=== PATIENT | male | born 1965 | race Caucasian/White ===

== ENCOUNTER 2025-03-30 17:41 | Emergency (ER) | payer OTHER, SELFPAY ==
[2025-03-30] VITALS (8 sets, daily range): BP systolic 129–189; BP diastolic 81–126; PULSE 70–101; RESP 14–18; TEMP 36.8–37; O2SAT 96–100; BMI 32.7
--- NOTE | 2025-03-30 18:19 | CT_ITS ---
PROCEDURE: CTA HEAD AND NECK W/ CONTRAST 03/30/2025 REASON FOR EXAM: LEFT SIDE WEAKNESS TECHNIQUE: CTA HEAD AND NECK W/ CONTRAST Multiplanar Sagittal and Coronal images were obtained. CONTRAST: 100 mL of Isovue 370 One or more dose reduction techniques were used (e.g., Automated exposure control, adjustment of the mA and/or kV according to patient size, use of iterative reconstruction technique). RADIATION DOSE SUMMARY: DLP: 1725 mGycm COMPARISON: None FINDINGS: CT head : There is no acute infarct, intracranial hemorrhage, or mass effect. There is no hydrocephalus or significant midline shift. No acute, depressed calvarial fractures. No large scalp hematomas. CTA head and neck: The aortic arch demonstrates a type I configuration. The ostia of the great vessels are patent. There is conventional branching. The right CCA is patent. There is no significant stenosis of the right carotid bifurcation by NASCET criteria. The cervical right ICA is patent. The right MCA and right MIO appear patent. There is no large vessel occlusion. The left CCA is patent. There is no significant stenoses at the left carotid bifurcation by NASCET criteria. The cervical left ICA is patent. The left MCA and left MIO appear patent. There is no large vessel occlusion. The right vertebral artery arises from the right subclavian artery. The left vertebral artery arises from the left subclavian artery. Both vertebral arteries are patent. The left vertebral artery is dominant. Both vertebral arteries join to form the patent basilar artery. Both posterior cerebral arteries arise from the tip of the basilar. Both proximal PET CAREGIVER segments are patent. There is no large vessel occlusion. There is no enhancing intracranial mass. Shotty cervical lymph nodes are identified. The thyroid gland is heterogeneous. The lung apices demonstrate no pneumothorax. No destructive osseous abnormalities identified. CT/CTA Head AND Neck W/ Contrast IMPRESSION: No acute, large territorial infarction. No acute intracranial process. No acute large vessel occlusion or high-grade stenosis. Reading Location: [id number]
--- NOTE | 2025-03-30 18:19 | EKG12_ITS ---
Test Reason : GEN ILL Blood Pressure : */* mmHG Vent. Rate : 80 BPM Atrial Rate : 80 BPM P-R Int : 152 ms QRS Dur : 106 ms QT Int : 384 ms P-R-T Axes : 4 -56 5 degrees QTcB Int : 442 ms Normal sinus rhythm Left axis deviation Pulmonary disease pattern Incomplete right bundle branch block Abnormal ECG Confirmed by DARLENE ROYAL, CHRISTIANO ([id number]), electronic news gathering editor FITO SILVERIO ([id number]) on 04/01/2025 6:46:34 AM Referred By: Confirmed By: CHRISTIANO COLON MD
--- NOTE | 2025-03-30 18:22 | EX.ED.DYSGE1 ---
HPI History of Present Illness Chief Complaint: General Illness Informant: patient Narrative Narrative: Patient presents for evaluation. 2 days ago at work 8 AM is under a lot of stress he was taking care of customers he reported lightheaded symptoms with down his knees with syncope episode. Headache afterwards on and off throughout the day has been feeling fatigued. At that time reported he felt weak on the left side he is right-hand dominant. He has been using a cane since. He was confused that evening. Further discussion he states he did seem to have slurred speech that has been improving since then. In addition, he deals with varicose veins he has had DVT in the past his made him come get this evaluated. Denies any pain currently. Noted some lumps. No chest pains no shortness of breath. No stroke history. Does not take blood thinners no aspirin therapy. Hypertension hyperlipidemia. He moved down here from [facility]. He has appointment with his PCP in [place] this coming Monday. Does note numbness in his left foot. Prior similar symptoms: No PFSH PFSH Medical History DVT (deep venous thrombosis) Osteoarthritis HTN (hypertension) Home Medications ?Medication ?Instructions ?Recorded ?Last Taken ?Type bupropion HCl 150 mg 24 hr tablet, 150 mg PO DAILY 06/18/16 06/18/16 History extended release melatonin 3 mg tablet 3 - 6 mg PO QHS 06/18/16 06/17/16 History pantoprazole 40 mg tablet,delayed 40 mg PO DAILY 06/18/16 06/18/16 History release Valsartan [Diovan] 320 mg PO DAILY #30 tabs 06/19/16 Unknown Rx morphine 30 mg tablet,extended 60 mg (2 x 30 mg) PO BID ##28 06/19/16 Unknown Rx release oxycodone 5 mg tablet 5 - 10 mg (1 - 2 x 5 mg) PO Q4H 06/19/16 Unknown Rx PRN PRN Moderate Pain (pain scale 4-5) ##60 rivaroxaban 15 mg tablet (Xarelto) 15 mg PO BID ##42 06/19/16 Unknown Rx rivaroxaban 20 mg tablet (Xarelto) 20 mg PO DAILY ##30 06/19/16 Unknown Rx Allergy/AdvReac Type Severity Reaction Status Date / Time No Known Allergies Allergy Verified 03/30/25 17:43 Social History Smoking Status: Current some day smoker tobacco type: smokeless tobacco ROS ROS ED Constitutional Constitutional ED: Reports other Details: Fatigue ; Denies chills, fever(s) or sweats ENT ENT ED: Denies sore throat Cardiovascular Cardiovascular: Reports other Details: Syncope ; Denies chest pain, leg edema, palpitations or racing heartbeat Respiratory/Chest Respiratory/Chest: Denies cough, dyspnea or dyspnea on exertion Gastrointestinal Gastrointestinal: Denies abdominal pain, diarrhea, nausea or vomiting Genitourinary Genitourinary ED: Denies dysuria, hematuria or urinary frequency Musculoskeletal Musculoskeletal: Denies back pain, extremity pain or neck pain Integumentary Denies rash or wounds Neurologic Neurologic: Reports headache(s), paresthesias and weakness EXAM Physical Exam Const Vital Signs: 03/30/25 17:41 03/30/25 18:41 03/30/25 18:41 Temperature 98.6 F Temperature Source Oral Pulse Rate 101 H 85 Respiratory Rate 18 17 Respiratory Effort Respiratory Pattern Blood Pressure 189/126 H 149/85 H Blood Pressure Mean 147 106 Pulse Ox 100 97 97 Oxygen Delivery Method Room Air Room Air Room Air 03/30/25 18:50 03/30/25 19:19 03/30/25 19:30 Temperature Temperature Source Pulse Rate 82 84 Respiratory Rate 16 16 Respiratory Effort Normal Non-Labored Respiratory Pattern Normal Blood Pressure 164/88 H 164/88 H Blood Pressure Mean 113 113 Pulse Ox 97 96 Oxygen Delivery Method Room Air Room Air 03/30/25 20:00 03/30/25 20:00 03/30/25 20:30 Temperature Temperature Source Pulse Rate 81 100 Respiratory Rate 14 16 Respiratory Effort Respiratory Pattern Blood Pressure 161/82 H 161/82 H 129/81 H Blood Pressure Mean 108 108 97 Pulse Ox 96 96 Oxygen Delivery Method Room Air Room Air 03/30/25 22:00 03/30/25 22:02 Temperature 98.3 F Temperature Source Pulse Rate 70 70 Respiratory Rate 16 16 Respiratory Effort Respiratory Pattern Blood Pressure 134/86 H 134/86 H Blood Pressure Mean 102 102 Pulse Ox 97 97 Oxygen Delivery Method Room Air Positive well nourished and well developed General Appearance ED: well developed and NAD HEENT Reports moist mucous membranes normocephalic and atraumatic Eyes General Eye ED: Yes normal appearance of both eyes Neck full ROM Chest Wall Chest: Negative for tenderness Resp normal respiratory effort and normal air movement Effort and Inspection: symmetric chest movement; Negative for respiratory distress Cardio regular rate, regular rhythm and no murmurs Peripheral Pulses: pulses 2+ throughout GI normal to inspection, nondistended, normoactive bowel sounds and non-tender Palpation: Negative for guarding or rebound tenderness present Extremity normal to inspection General Extremety ED: Negative for edema or tenderness General Extremity: Negative for edema Neuro oriented x3, CN's II-XII intact bilaterally and no sensory deficits noted Neuro Narrative: NIH of 2 for slight drift of left arm, paresthesias to left foot compared to the right foot. There was weakness upper extremity strength and hip flexor strength 4 out of 5 compared the right side. Sensorium / Orientation: awake and alert Skin no rashes or lesions noted and no wounds NIHSS NIHSS Initial: 1a Level of Consciousness: 0 1b LOC Questions (Score 2 if aphasic/stupor): 0 1c LOC Commands (Only score 1st attempt): 0 2 Best Gaze (If aphasic, use reflexive mvmts.): 0 3 Visual: 0 4 Facial Palsy: 0 5 Motor Arm Right (UN = amputation/fusion): 0 5 Motor Arm Left: 1 6 Motor Leg Right: 0 6 Motor Leg Left: 0 7 Limb ataxia (Only + if out of proportion): 0 8 Sensory (Aphasia/stupor=0 or 1, coma=2): 1 9 Best Language: 0 10 Dysarthria (mute, coma=2, intubated=UN): 0 11 Extinction and Inattention (only scored if +): 0 Total Score: 2 MDM MDM MDM Narrative Medical decision making narrative: Interventions / MDM: Differential diagnosis: CVA, left-sided weakness, syncope Diagnosis considered but do not suspect: N/A My EKG interpretation: Sinus rate of 80, no ST changes. T wave inversion leads III flattening in aVF. Some similar findings from 2016 Imaging independently reviewed and interpreted by myself: CT angiogram head and neck: No acute process. External documents reviewed: N/A Test considered but not ordered:N/A ED course: Patient reported syncopal episodes then headache and left-sided weakness. His NIH of 2. Symptoms now over 48 hours. Will check EKG will check CT angiogram head and neck, labs will be checked. Discussed with him concerns for stroke event leading to his symptoms. He is not in the window for any TNK. His speech has improved since onset [address] Results of [address] negative. EKG sinus rhythm. I discussed with patient new symptoms concerning for stroke for admission for further evaluation. However patient reports he would like to go home and see his doctor. His speech is improving. Patient reviewed his meds on the phone he takes 2 baby aspirin's a days on atorvastatin. Therefore, I spoke with his PCP Dr. Royal, discussed patient's wish for outpatient workup. Patient will call his office tomorrow to be seen. This was relayed to the patient who understands and agrees with plan. Work note was provided. Re-evaluation: stable Disposition discussed with patient/family/significant other: Patient Case discussed with consulting clinician: Primary care physician This note was generated with [employer] dictation software. It may contain incorrect words, spelling, and punctuation that were not noted in checking the note before signing. Lab Data Attestation: I reviewed the patient's lab results. Labs: Laboratory Results - last 24 hr 03/30/25 03/30/25 03/30/25 18:29 18:35 20:40 WBC 8.5 RBC 4.69 Hgb 14.7 Hct 41.7 MCV 88.9 MCH 31.3 MCHC 35.3 RDW Std Deviation 42.7 RDW Coeff of Keith 13.1 Plt Count 346 MPV 9.5 Immature Gran % (Auto) 0.600 Neut % (Auto) 57.8 Lymph % (Auto) 23.6 [place] % (Auto) 13.3 H Eos % (Auto) 3.5 Baso % (Auto) 1.2 H Absolute Neuts (auto) 4.9 Absolute Lymphs (auto) 2.01 Nucleated RBC % 0 PT 12.3 INR 0.9 APTT 23.8 L Sodium 137 Potassium 3.5 Chloride 100 Carbon Dioxide 23.4 Anion Gap 14 BUN 11 Creatinine 1.01 Estim Creat Clear Calc 102.22 Est GFR (MDRD) Non-Af 85 BUN/Creatinine Ratio 11.1 Glucose 108 H Calcium 9.4 Troponin T High Sens 8 Troponin T Hi Sens 2 Hr 8 POC Glucose 112 H Radiography Diagnostic Testing: Clinical Impression(s) from Imaging Studies Head/Neck CTA 03/30/25 18:19 IMPRESSION: No acute, large territorial infarction. No acute intracranial process. No acute large vessel occlusion or high-grade stenosis. Reading Location: [facility] Discharge Plan Triage Chief Complaint: General Illness ED Provider: Andrew Farrar Dx/Rx/DC Orders Clinical Impression: Acute CVA (cerebrovascular accident), Left-sided weakness Instructions: Stroke Self Care After Prescriptions: No Action pantoprazole 40 MG tablet 40 mg PO DAILY Patient Comments: GERD bupropion HCl 150 MG tablet extended release 24 hr 150 mg PO DAILY Patient Comments: ANXIETY melatonin 3 MG tablet 3 - 6 mg PO QHS Patient Comments: SLEEP morphine 30 MG tablet 60 mg PO BID Qty: 28 0RF Patient Comments: PAIN Rx Instructions: use for seven days, then discontinue oxycodone 5 MG tablet 5 - 10 mg PO Q4H PRN PRN (Reason: Moderate Pain (pain scale 4-5)) Qty: 60 0RF Patient Comments: BREAKTHROUGH PAIN Valsartan [Diovan] 320 MG tablet 320 mg PO DAILY Qty: 30 1RF Patient Comments: BLOOD PRESSURE rivaroxaban [Xarelto] 20 MG tablet 20 mg PO DAILY Qty: 30 0RF Patient Comments: BLOOD THINNER Rx Instructions: start on 07/10/16 rivaroxaban [Xarelto] 15 MG tablet 15 mg PO BID Qty: 42 0RF Patient Comments: BLOOD THINNER Rx Instructions: start on 06/20/16 Stand Alone Forms: ED Work / School Excuse Primary Care Provider: Rupesh Royal Referrals: Rupesh Royal DO [Primary Care Provider] - 1 Day Kwaku Lyons MD [Non-Staff] - Activity Restrictions/Additional Instructions: Is concerned he had a stroke 2 days ago affecting her left side. Your CT angiogram and CT brain were negative. EKG sinus rhythm. Your labs are stable. Continue your aspirin daily continue your atorvastatin. I discussed with Dr. Royal in the ED as you wish to go home. Call the office tomorrow to be seen later in the afternoon. Print Language: [place] Disposition Disposition: Home, Self Care Discharge Date/Time: 03/30/25 22:28
[2025-03-30 18:46] LABS: Bedside Glucose 112 mg/dL (74-106)
[2025-03-30 18:51] LABS: Absolute Lymphocyte Count 2.01 X10^3/uL (0.83-4.51); Absolute Neutrophil Count 4.9 X10^3/uL (2.0-7.7); Basophil% 1.2 % (0-1); Eosinophils% 3.5 % (0-5); Hematocrit 41.7 % (40-54); Hemoglobin 14.7 g/dL (13.0-16.5); Lymphocyte # 2.01 X10^3/ul (0.83-4.51); Lymphocyte % 23.6 % (19-41); Mean Corp Hgb Conc 35.3 g/dL (32-36); Mean Corpuscular Hgb 31.3 pg (27.0-32.0); Mean Corpuscular Volume 88.9 fL (80-94); Mean Platelet Vol. 9.5 fl (6.2-12.0); Monocyte# 1.13 X10^3/uL; Monocyte% 13.3 % (0-10); NRBC Flagged by Analyzer 0 % (0-5); Neutrophil # 4.91 X10^3/uL (2.7-7.7); Neutrophil % 57.8 % (47-70); Platelet Count 346 K/mm3 (150-450); RBC Distribution Width CV 13.1 % (11.6-14.6); RBC Distribution Width SD 42.7 fl (35.1-43.9); Red Blood Count 4.69 M/mm3 (4.6-6.2); White Blood Count 8.5 K/mm3 (4.4-11.0)
[2025-03-30 19:08] LABS: International Normalized Ratio 0.9; Partial Thromboplast Time 23.8 Seconds (24.1-36.2); Prothrombin Time (Protime)PT. 12.3 SECONDS (11.7-14.9)
[2025-03-30 19:40] LABS: Anion Gap 14 (5-15); BUN 11 mg/dL (4-19); BUN/Creat Ratio 11.1 RATIO (10-20); Calcium,Total 9.4 mg/dL (7.6-11.0); Carbon Dioxide 23.4 mmol/L (21.0-32.0); Chloride 100 mmol/L (98-108); Creatinine, Serum 1.01 mg/dL (0.70-1.20); EST Glomerular Filtration Rate 85 (>60); Estimated Creatinine Clearance 102.22 ml/min (50-250); Glucose 108 mg/dL (70-99); Potassium 3.5 mmol/L (3.3-5.1); Sodium Level 137 mmol/L (133-145); Troponin T High Sensitivity 8 ng/L (<=22)
--- OUTSIDE RECORDS SUMMARY | 2025-03-30 19:49 | XMS RPT_ITS | CCD ---
Author Organization [employer] [facility] Care Team Providers Care Skin Fitter Name Role Phone Rupesh Royal Primary Care Provider Kwaku Lyons Referring Unavailable Kwaku Lyons Primary Care Unavailable Mg Olivia Attending Unavailable Problems Problem Classification Problem Date Documented Da te Episodic/Chronic Disorders of teeth and jaw (1 source) Periapical abscess without sinus; Translations: [Periapical abscess without sinus] Onset: 10-07-2024 Episodic Other upper respiratory infections (1 source) Acute sinusitis, unspecified; Translations: [Acute sinusitis, unspecified] Onset: 10-07-2024 Episodic Results Test Name Value Interpretation Reference Range Facility Urgent Care Visit Reporton 1 11-06-2023 Urgent Care Visit Report [facility] [address], [address] [place] [address] OFFICE VISIT Date of Service: 09/06/24 MR#: [id number] Acct: [id number] Name: RONALD AMEZQUITA Rep #: [id number] : 1965 Provider: SHASHA Isbell Age/Sex: 58/M Location: [facility] Status: Signed Intake Vital Signs 06/19/16 11:08 09/06/24 12:19 Height 6 ft 1 in 6 ft 1 in Weight: 252 lb 6 oz BMI 33.3 BP 162/68 H Blood Pressure Location Lt brachial Position Sitting Respiration 6 L Pulse 84 Pulse Source NIBP Temp 98.2 F Temp Source Oral Pulse Oximetry (%) 98 Oxygen Delivery Method room air Intake Visit Reasons: INFECTED TOOTH Chief Complaint: left lower tooth pain Public Relations Consultant Required: No Is patient in pain?: Yes Allergies No Known Allergies Allergy (Verified 09/06/24 12:20) Have you fallen in the past year?: No Nurse's Note: left lower tooth pain/swelling x 3 months worsening. known issue in area, getting teeth pulled in 2024. concern for infection [facility] Medical History (Updated 09/06/24 @ 13:04 by Mg PULLIAM, SHASHA) DVT (deep venous thrombosis) Osteoarthritis HTN (hypertension) Social History Smoking Status: Current some day smoker HPI HPI Chief Complaint: left lower tooth pain Details: RONALD AMEZQUITA, is a 58 M who presents to the office today for complaint of left lower tooth pain. Patient states knowing having multiple teeth that need to be pulled. Patient states he does have a dentist appointment coming up in 3 days to have it addressed. Patient denies fever, chills, sweats. No nausea, vomiting or diarrhea. No other associated symptoms or alleviating/aggravating factors. ROS Const Constitutional: No other (6 system ROS completed with pertinent findings in the HPI otherwise normal.) Exam Const General: cooperative and healthy appearing [facility] Head: normocephalic and atraumatic Ears: hearing grossly normal bilaterally Nose: external nose normal Face and sinus: normal facial exam and face symmetric Mouth: oral mucosae normal Teeth and gingiva: caries, gingiva abnormal edematous, tender and receding and poor dentition Throat: posterior oropharynx normal Other: Multiple decayed molars left lower jaw with 1 having pulp exposed. Resp Effort Inspection: normal respiratory effort Cardio Rate: regular rate Skin General: no rashes or lesions noted Neuro General: patient alert Psych Appearance: grossly normal Mental Status: mental status grossly normal Coding Level of Care Code Off vis,new,level 3 Diagnoses Dental infection K04.7 Assessment and Plan Assessment and Plan (1) Dental infection: Status: Acute Medications: New amoxicillin-pot clavulanate 875-125 mg 1 TAB PO Q12H 20 tabs 0RF 10 days J01.90 - Acute sinusitis, unspecified Plan Augmentin as prescribed today. Encouraged to get plenty of rest, drink lots of clear liquids, and use Tylenol or Ibuprofen (unless contraindicated) for fever and comfort. Patient also educated on other symptomatic management techniques. To be seen in 7-10 days if no improvement; sooner if worsening of symptoms. Patient advised of potential red flags and when appropriate to report to the ED. Patient verbalized understanding and agreement with all the above. Clinical Quality Measures Falls Risk Screening/Assistive Devices Have you fallen in the past year?: No 09/06/24 1304 Date Mg Bowen Signature: Date (if applicable) CC: Normal [facility] 36on 04-14-2024 36 S: Patient spok e with [facility] nurse via Nurse Advice Line regarding abscess tooth B: Onset of symptoms/concern several weeks A: States patient has swelling around molar and having pain. States they know tooth is abscessed and are asking for antibiotic to treat. R: Patient understands care advice that antibiotic cannot be ordered by nurse. Advised patient should be evaluated by a dentist. states they wanted to treat with antibiotic before seeing dentist. Advised patient could go to [facility] for evaluation and treatment. No further needs at this time. Patient instructed to call back with new or worsening symptoms. Reason for Disposition Tooth is painful or swelling around a tooth [1] Face is swollen AND [2] no fever Protocols used: Mouth Hyxw-PNIAV-AN, Bkswmzxno[facility] SURGICAL PATHOLOGYon 023 CASE REPORT Normal [facility] Comment on above: Order Comment: Speci men Type: TISSUE SPECIMEN Ordering Facility: [facility] Address: [place] [address] Result Comment: Surg [facility] Pathology Report Case: [id number] Authorizing Provider: Margarita Oliver MD Collected: 12/15/2022 12:31 PM Ordering Location: [facility] Main Received: 12/15/2022 10:36 PM Pathologist: Sherine Ruiz MD Specimen: SKIN SHAVE BIOPSY, L Ala Performed By: #### S #### [facility] CLIA [id number] [address] [place] [address] [place] DERM SOURCE 1 Sebaceous gland hyperplasia Normal [facility] Comment on above: Order Comment: Speci men Type: TISSUE SPECIMEN Ordering Facility: [facility] Address: [place] [address] Performed By: #### S #### [facility] CLIA [id number] [address] [place] [address] OF [place] FINAL DIAGNOSIS Normal [facility] Comment on above: Order Comment: Speci men Type: TISSUE SPECIMEN Ordering Facility: [facility] Address: [place] [address] Result Comment: Venu bentley, left zen, shave biopsy: -Sebaceous hyperplasia with fibrous papule. -Demodex folliculitis Performed By: #### S #### [facility] CLIA [id number] [address] [place] [address] [facility] Normal [facility] Comment on above: Order Comment: Speci men Type: TISSUE SPECIMEN Ordering Facility: [facility] Address: [place] [address] Result Comment: Diag nostic interpretation performed at [place] [address] CLIA# [id number] Housekeeping Room Attendant: Christopher Burgess M.D. Performed By: #### S #### [facility] CLIA [id number] [address] [place] [address] OF [place] GROSS DESCRIPTION Normal [facility] Comment on above: Order Comment: Speci faviola Type: TISSUE SPECIMEN Ordering Facility: [facility] Address: [place] [address] Result Comment: Kaila. Pam BENTLEY SHAVE BIOPSY Received in formalin is a 0.7 x 0.6 x 0.2 cm shave of skin. On the skin surface there is a 0.7 cm christiansen slightly elevated area. The specimen is bisected. Totally submitted in one cassette. Gross examination performed at [place] [id number] FF 12/16/2022 1:52 AM Performed By: #### S #### [facility] CLIA [id number] [address] [place], [place] [id number] [place] CBC (INCLUDES DIFF/PLT)on Basophils (Bld) [#/Vol] 0.078 10*3/uL Normal 0-200 [facility] Comment on above: Performed By: #### 5 363, 496, 66147, 91538, 6399 #### [facility] of [address], [address] [place] [address] Manager Garden: Jt Jorgensen MD Basophils/100 WBC (Bld) 0.9 % Normal [facility] Comment on above: Performed By: #### 5 363, 496, 54998, 73977, 6399 #### [facility] of [place] [address] Manager Garden: Jt Jorgensen MD Eosinophils (Bld) [#/Vol] 0.174 10*3/uL Normal 15-500 [facility] Comment on above: Performed By: #### 5 363, 496, 06134, 79395, 6399 #### [facility] of [place] [address] Manager Garden: Jt Jorgensen MD Eosinophils/100 WBC (Bld) 2.0 % Normal [facility] Comment on above: Performed By: #### 5 363, 496, 15230, 16517, 6399 #### [facility] of [place] [address] Manager Garden: Jt Jorgensen MD Erythrocyte distribution width (RBC) [Ratio] 13.0 % Normal 11.0-15.0 [facility] Comment on above: Performed By: #### 5 363, 496, 93387, 20988, 6399 #### [facility] of [place] [address] Manager Garden: Jt Jorgensen MD Hematocrit (Bld) [Volume fraction] 40.8 % Normal 38.5-50.0 [facility] Comment on above: Performed By: #### 5 363, 496, 18751, 93900, 6399 #### [facility] of [place] [address] Manager Garden: Jt Jorgensen MD Hemoglobin (Bld) [Mass/Vol] 13.8 g/dL Normal 13.2-17.1 [facility] Comment on above: Performed By: #### 5 363, 496, 33319, 74235, 6399 #### [facility] of [address], [address] [place] [address] Manager Garden: Jt Jorgensen MD Lymphocytes (Bld) [#/Vol] 1.844 10*3/uL Normal 850-3900 [facility] Comment on above: Performed By: #### 5 363, 496, 08731, 44467, 6399 #### [facility] of [address], [address] [place] [address] Manager Garden: Jt Jorgensen MD Lymphocytes/100 WBC (Bld) 21.2 % Normal [facility] Comment on above: Performed By: #### 5 363, 496, 19185, 11246, 6399 #### [facility] of [place] [address] Manager Garden: Jt Jorgensen MD MCH (RBC) [Entitic mass] 31.3 pg Normal 27.0-33.0 [facility] Comment on above: Performed By: #### 5 363, 496, 01414, 95712, 6399 #### [facility] of [place] [address] Manager Garden: Jt Jorgensen MD MCHC (RBC) [Mass/Vol] 33.8 g/dL Normal 32.0-36.0 [facility] Comment on above: Performed By: #### 5 363, 496, 35206, 12912, 6399 #### [facility] of [place] [address] Manager Garden: Jt Jorgensen MD MCV (RBC) [Entitic vol] 92.5 fL Normal 80.0-100.0 [facility] Comment on above: Performed By: #### 5 363, 496, 97529, 12003, 6399 #### [facility] of [place] [address] Manager Garden: tJ Jorgensen MD Monocytes (Bld) [#/Vol] 0.887 10*3/uL Normal 200-950 [facility] Comment on above: Performed By: #### 5 363, 496, 91378, 11531, 6399 #### [facility] of [place] [address] Manager Garden: Jt Jorgensen MD Monocytes/100 WBC (Bld) 10.2 % Normal [facility] Comment on above: Performed By: #### 5 363, 496, 68786, 61408, 6399 #### [facility] of [place] [address] Manager Garden: Jt Jorgensen MD Neutrophils (Bld) [#/Vol] 5.716 10*3/uL Normal 2507-4787 [facility] Comment on above: Performed By: #### 5 363, 496, 66546, 74027, 6399 #### [facility] [place] [address] Manager Garden: Jt Jorgensen MD Neutrophils/100 WBC (Bld) 65.7 % Normal [facility] Comment on above: Performed By: #### 5 363, 496, 45178, 50980, 6399 #### [facility] of [place] [address] Manager Garden: Jt Jorgensen MD Platelet mean volume (Bld) [Entitic vol] 10.2 fL Normal 7.5-12.5 [facility] Comment on above: Performed By: #### 5 363, 496, 23322, 38306, 6399 #### [facility] of [address] [place] [address] Manager Garden: Jt Jorgensen MD Platelets (Bld) [#/Vol] 320 10*3/uL Normal 140-400 [facility] Comment on above: Performed By: #### 5 363, 496, 93354, 33501, 6399 #### [facility] of [address], [address] [place] [address] Manager Garden: Jt Jorgensen MD RBC (Bld) [#/Vol] 4.41 10*6/uL Normal 4.20-5.80 [facility] Comment on above: Performed By: #### 5 363, 496, 48279, 77747, 6399 #### [facility] of [place] [address] Manager Garden: Jt Jorgensen MD WBC (Bld) [#/Vol] 8.7 10*3/uL Normal 3.8-10.8 [facility] Comment on above: Performed By: #### 5 363, 496, 09880, 60430, 6399 #### [facility] of [place] [address] Manager Garden: Jt Jorgensen MD [facility] [place] 11-04-2022 Albumin [Mass/Vol] 4.5 g/dL Normal 3.6-5.1 [facility] Comment on above: Performed By: #### 5 363, 496, 94018, 02442, 6399 #### [facility] of [place] [address] Manager Garden: Jt Jorgensen MD Albumin/Globulin [Mass ratio] 1.8 {ratio} Normal 1.0-2.5 [facility] Comment on above: Performed By: #### 5 363, 496, 77346, 71867, 6399 #### [facility] of [place] [address] Manager Garden: Jt Jorgensen MD ALP [Catalytic activity/Vol] 85 U/L Normal 35-144 [facility] Comment on above: Performed By: #### 5 363, 496, 34374, 95837, 6399 #### [facility] of [address], [address] [place] [address] Manager Garden: Jt Jorgensen MD ALT [Catalytic activity/Vol] 56 U/L High 9-46 [facility] Comment on above: Performed By: #### 5 363, 496, 10545, 08036, 6399 #### [facility] of [address], [address] [place] [address] Manager Garden: Jt Jorgensen MD AST [Catalytic activity/Vol] 63 U/L High 10-35 [facility] Comment on above: Performed By: #### 5 363, 496, 31127, 82673, 6399 #### [facility] of [address], [address] [place] [address] Manager Garden: Jt Jorgensen MD Bilirubin [Mass/Vol] 0.8 mg/dL Normal 0.2-1.2 [facility] Comment on above: Performed By: #### 5 363, 496, 43302, 14612, 6399 #### [facility] of [address], [address] [place] [address] Manager Garden: Jt Jorgensen MD BUN/CREATININE RATIO NOT APPLICABLE Normal 6-22 [facility] Comment on above: Performed By: #### 5 363, 496, 28032, 12849, 6399 #### [facility] of [place] [address] Manager Garden: Jt Jorgensen MD Calcium [Mass/Vol] 9.5 mg/dL Normal 8.6-10.3 [facility] Comment on above: Performed By: #### 5 363, 496, 70582, 72150, 6399 #### [facility] of [place] [address] Manager Garden: Jt Jorgensen MD Chloride [Moles/Vol] 101 mmol/L Normal 98-110 [facility] Comment on above: Performed By: #### 5 363, 496, 67792, 10057, 6399 #### [facility] of [facility] [address], [address] [address] Manager Garden: Jt Jorgensen MD CO2 [Moles/Vol] 26 mmol/L Normal 20-32 [facility] Comment on above: Performed By: #### 5 363, 496, 81224, 96422, 6399 #### [facility] [place] [address] Manager Garden: Jt Jorgensen MD Creatinine [Mass/Vol] 1.06 mg/dL Normal 0.70-1.30 [facility] Comment on above: Performed By: #### 5 363, 496, 55157, 46548, 6399 #### [facility] [place] [address] Manager Garden: Jt Jorgensen MD GFR/1.73 sq M.predicted among non-blacks MDRD (S/P/Bld) [Vol rate/Area] 82 mL/min/{1.73_m2} Normal > OR = 60 [facility] Comment on above: Result Comment: The eGFR is based on the CKD-EPI 2020 equation. To calculate the new eGFR from a previous Creatinine or Cystatin C result, go to https://www.kidney.org/professionals/ kdoqi/gfr%5Fcalculator Performed By: #### 5 363, 496, 18099, 01859, 6399 #### [facility] [place] [address] Manager Garden: Jt Jorgensen MD Globulin (S) [Mass/Vol] 2.5 g/dL Normal 1.9-3.7 [facility] Comment on above: Performed By: #### 5 363, 496, 18242, 98501, 6399 #### [facility] [place] [address] Manager Garden: Jt Jorgensen MD Glucose [Mass/Vol] 132 mg/dL High 65-99 [facility] Comment on above: Result Comment: Fasting reference interval For someone without known diabetes, a glucose value >125 mg/dL indicates that they may have diabetes and this should be confirmed with a follow-up test. Performed By: #### 5 363, 496, 99319, 94997, 6399 #### [facility] [place] [address] Manager Garden: Jt Jorgensen MD Potassium [Moles/Vol] 4.1 mmol/L Normal 3.5-5.3 [facility] Comment on above: Performed By: #### 5 363, 496, 20739, 46428, 6399 #### [facility] [place] [address] Manager Garden: Jt Jorgensen MD Protein [Mass/Vol] 7.0 g/dL Normal 6.1-8.1 [facility] Comment on above: Performed By: #### 5 363, 496, 69896, 74022, 6399 #### [facility] [place] [address] Manager Garden: Jt Jorgensen MD Sodium [Moles/Vol] 141 mmol/L Normal 135-146 [facility] Comment on above: Performed By: #### 5 363, 496, 18456, 80788, 6399 #### [facility] [place] [address] Manager Garden: Jt Jorgensen MD Urea nitrogen [Mass/Vol] 15 mg/dL Normal 7-25 [facility] Comment on above: Performed By: #### 5 363, 496, 83386, 74469, 6399 #### [facility] [place] [address] Manager Garden: Jt Jorgensen MD HEMOGLOBIN A1con 11-04-2022 HEMOGLOBIN A1c 6.1 % of total Hgb High <5.7 [facility] Comment on above: Result Comment: For someone without known diabetes, a hemoglobin A1c value between 5.7% and 6.4% is consistent with prediabetes and should be confirmed with a follow-up test. For someone with known diabetes, a value <7% indicates that their diabetes is well controlled. A1c targets should be individualized based on duration of diabetes, age, comorbid conditions, and other considerations. This assay result is consistent with an increased risk of diabetes. Currently, no consensus exists regarding use of hemoglobin A1c for diagnosis of diabetes for children. Performed By: #### 5 363, 496, 56315, 79225, 6399 #### [facility] [address], [address] [place] [address] Manager Garden: Jt Jorgensen MD LIPID PANEL WITH REFLEX TO D HARJINDERCT LDLon 11-04-2022 Cholesterol [Mass/Vol] 194 mg/dL Normal <200 [facility] Comment on above: Order Comment: FASTI NG:YES FASTING: YES Performed By: #### 5 363, 496, 56427, 33982, 6399 #### [facility] [address], [address] [place] [address] Manager Garden: Jt Jorgensen MD Cholesterol in HDL [Mass/Vol] 61 mg/dL Normal > OR = 40 [facility] Comment on above: Order Comment: FASTI NG:YES FASTING: YES Performed By: #### 5 363, 496, 07710, 93819, 6399 #### [facility] [address], [address] [place] [address] Manager Garden: Jt Jorgensen MD Cholesterol in LDL [Mass/Vol] 93 mg/dL Normal [facility] Comment on above: Order Comment: FASTI NG:YES FASTING: YES Result Comment: Refe rence range: <100 Desirable range <100 mg/dL for primary prevention; <70 mg/dL for patients with CHD or diabetic patients with > or = 2 CHD risk factors. LDL-C is now calculated using the Arie-[place] calculation, which is a validated novel method providing better accuracy than the Friedewald equation in the estimation of LDL-C. Arie SS et al. CIRO. 2013;310(19): 6099-9994 (http://education.[employer].2degreesmobile/faq/GLZ496) Performed By: #### 5 363, 496, 86427, 85563, 6399 #### [facility] [address], [address] [place] [address] Manager Garden: Jt Jorgensen MD Cholesterol.total/C holesterol in HDL [Mass ratio] 3.2 {ratio} Normal <5.0 [facility] Comment on above: Order Comment: FASTI NG:YES FASTING: YES Performed By: #### 5 363, 496, 57819, 05845, 6399 #### [facility] [address], [address] [place] [address] Manager Garden: Jt Jorgensen MD NON HDL CHOLESTEROL 133 mg/dL (calc) High <130 [facility] Comment on above: Order Comment: FASTI NG:YES FASTING: YES Result Comment: For patients with diabetes plus 1 major ASCVD risk factor, treating to a non-HDL-C goal of <100 mg/dL (LDL-C of <70 mg/dL) is considered a therapeutic option. Performed By: #### 5 363, 496, 55879, 92694, 6399 #### [facility] [address], [address] [place] [address] Manager Garden: Jt Jorgensen MD Triglyceride [Mass/Vol] 278 mg/dL High <150 [facility] Comment on above: Order Comment: FASTI NG:YES FASTING: YES Result Comment: If a non-fasting specimen was collected, consider repeat triglyceride testing on a fasting specimen if clinically indicated. Harjinder et al. J. of Clin. Lipidol. 2015;9:129-169. Performed By: #### 5 363, 496, 56273, 61286, 6399 #### [facility] [address], [address] [place] [address] Manager Garden: Jt Jorgensen MD PSA, TOTALon 11-04-2022 PSA, TOTAL 0.48 ng/mL Normal < OR = 4.00 [facility] Comment on above: Result Comment: The total PSA value from this assay system is standardized against the WHO standard. The test result will be approximately 20% lower when compared to the equimolar-standardized total PSA ([place]). Comparison of serial PSA results should be interpreted with this fact in mind. This test was performed using the Siemens chemiluminescent method. Values obtained from different assay methods cannot be used interchangeably. PSA levels, regardless of value, should not be interpreted as absolute evidence of the presence or absence of disease. Performed By: #### 5 363, 496, 95931, 46979, 6399 #### [facility] [address], [address] [place] [address] Manager Garden: Jt Jorgensen MD AUTO DIFFon 03-22-2022 Baso Count 0.10 x1000 Normal 0.00-0.20 [facility] Comment on above: Performed By: #### 1 220641, [id number], 3822179, 3108017, 275276, 913259, 373756 #### [facility] [address] [place], [place] [address] Manager Garden: Arie Gupta MD Basos % 1.0 % Normal [facility] Comment on above: Performed By: #### 1 046354, CD:[id number], 1229710, 4540641, 044034, 720749, 104883 #### [facility] [address] [place], [place] [address] Manager Garden: Arie Gupta MD Eos Count 0.15 x1000 Normal 0.00-0.50 [facility] Comment on above: Performed By: #### 1 107157, CD:[id number], 6747185, 1615301, 466385, 504260, 747762 #### [facility] [address] [place], [place] [address] Manager Garden: Arie Gupta MD Eosinophils/100 WBC (Bld) 1.5 % Normal [facility] Comment on above: Performed By: #### 1 717674, CD:[id number], 2951269, 6875643, 381553, 324162, 977458 #### [facility] [address] [place] [address] Manager Garden: Arie Gupta MD Lymph Count 1.70 x1000 Normal 1.20-4.80 [facility] Comment on above: Performed By: #### 1 660990, CD:[id number], 4956554, 2505162, 499133, 047284, 266102 #### [facility] [address] [place] [address] Manager Garden: Arie Gupta MD Lymphocytes/100 WBC (Bld) 16.6 % Normal [facility] Comment on above: Performed By: #### 1 711213, CD:[id number], 7833953, 6861993, 636716, 773285, 103226 #### [facility] [address] [place] [address] Manager Garden: Arie Gupta MD Mcclain Count 1.08 x1000 High 0.10-1.00 [facility] Comment on above: Performed By: #### 1 102471, CD:[id number], 9466267, 0432861, 345121, 115745, 891750 #### [facility] [address] [place] [address] Manager Garden: Arie Gupta MD Monocytes/100 WBC (Bld) 10.6 % Normal [facility] Comment on above: Performed By: #### 1 863432, CD:[id number], 8750942, 1316885, 281243, 250313, 730640 #### [facility] [address] [place] [address] Manager Garden: Arie Gupta MD Neutrophil Count (ANC) 7.20 x1000 Normal 1.40-8.80 [facility] Comment on above: Performed By: #### 1 312301, CD:[id number], 4377654, 0620633, 481214, 946351, 040874 #### [facility] [address] [place] [address] Manager Garden: Arie Gupta MD Neutrophils/100 WBC (Bld) 70.4 % Normal [facility] Comment on above: Performed By: #### 1 402744, CD:[id number], 8486560, 0857421, 787154, 865675, 977791 #### [facility] [address] [place] [address] Manager Garden: Arie Gupta MD COMPMETAon 03-22-2022 Albumin/Globulin [Mass ratio] 1.0 {ratio} Normal [facility] Comment on above: Performed By: #### 1 [id number], CD:[id number], 5172516, 1103424, 309488, 607271, 459066 #### [facility] [address] [place] [address] Manager Garden: Arie Gupta MD GFR AA >60 Normal [facility] Comment on above: Result Comment: Afri can Tunisian GFR Calc Medical judgement is necessary to interpret GFR. The calculated GFR may not accurately reflect renal status in patients >70 years, women, acutely ill hospitalized patients and patients with acute renal failure or known renal disease. The MDRD GFR formula is valid only for adults greater than 18 years of age. Note: Creatinine clearance (not GFR) should be used for drug dosing. Performed By: #### 1 954180, CD:[id number], 9557746, 5756577, 917542, 803792, 182597 #### [facility] [address] [place] [address] Manager Garden: Arie Gupta MD Glomerular Filtration Rate >60 Normal [facility] Comment on above: Result Comment: Non GFR Calc Medical judgement is necessary to interpret GFR. The calculated GFR may not accurately reflect renal status in patients >70 years, women, acutely ill hospitalized patients and patients with acute renal failure or known renal disease. The MDRD GFR formula is valid only for adults greater than 18 years of age. Note: Creatinine clearance (not GFR) should be used for drug dosing. Performed By: #### 1 260538, CD:[id number], 3583808, 7526994, 726071, 251424, 329612 #### [facility] [address] [place] [address] Manager Garden: Arie Gupta MD Osmolality [Osmolality] 274 mosm/kg Low 275-295 [facility] Comment on above: Performed By: #### 1 977376, CD:[id number], 9565919, 9359932, 327456, 731058, 857985 #### [facility] [address] [place] [address] Manager Garden: Arie Gupta MD Urea nitrogen/Creatinine [Mass ratio] 8.3 mg/mg Normal [facility] Comment on above: Performed By: #### 1 812348, CD:[id number], 2627933, 9412994, 052067, 130911, 727168 #### [facility] [address] [place] [address] Manager Garden: Arie Gupta MD Albumin [Mass/Vol] 3.7 g/dL Normal 3.4-5.0 [facility] Comment on above: Performed By: #### 1 207780, CD:[id number], 0220419, 4064009, 586276, 944140, 621004 #### [facility] [address] [place] [address] Manager Garden: Arie Gupta MD Alk Phos 102 unit/L Normal 45-117 [facility] Comment on above: Performed By: #### 1 250521, CD:[id number], 6393727, 8038538, 205109, 022323, 342268 #### [facility] [address] [place] [address] Manager Garden: Arie Gupta MD Bilirubin [Mass/Vol] 1.11 mg/dL High 0.20-1.00 [facility] Comment on above: Result Comment: Use of this assay is not recommended for patients undergoing treatment with eltrombopag due to the potential for falsely elevated results. Performed By: #### 1 744569, CD:[id number], 4573404, 4530338, 341317, 592890, 130133 #### [facility] [address] [place] [address] Manager Garden: Arie Gupta MD Calcium [Mass/Vol] 9.6 mg/dL Normal 8.5-10.5 [facility] Comment on above: Performed By: #### 1 725506, CD:[id number], 4507356, 1046799, 022886, 787890, 422893 #### [facility] [address] [place] [address] Manager Garden: Arie Gupta MD Chloride [Moles/Vol] 99 mmol/L Low 100-109 [facility] Comment on above: Performed By: #### 1 480078, CD:238463142, 6699838, 2564343, 261221, 049918, 050510 #### [facility] [address] [place] [address] Manager Garden: Arie Gupta MD CO2 [Moles/Vol] 29.1 mmol/L Normal 21.0-32.0 [facility] Comment on above: Performed By: #### 1 979719, CD:[id number], 4539365, 1064125, 552653, 092193, 083680 #### [facility] [address] [place] [address] Manager Garden: Arie Gupta MD Creatinine [Mass/Vol] 1.1 mg/dL Normal 0.7-1.3 [facility] Comment on above: Performed By: #### 1 192922, CD:[id number], 7450949, 7926295, 014623, 340698, 934680 #### [facility] [address] [place] [address] Manager Garden: Arie Gupta MD Globulin (S) [Mass/Vol] 3.6 g/dL Normal [facility] Comment on above: Performed By: #### 1 344986, CD:993512025, 3088203, 6789094, 392188, 951261, 039248 #### [facility] [address] [place] [address] Manager Garden: Arie Gupta MD Glucose [Mass/Vol] 123 mg/dL High 72-100 [facility] Comment on above: Result Comment: Luzmaria puncture should occur prior to sulfasalazine administration due to the potential for falsely depressed results. Venipuncture should occur prior to sulfapyridine administration due to the potential falsely elevated results. Baseline assay values before administration of sulfasalazine and sulfapyridine therapy would not be affected. Performed By: #### 1 961259, CD:[id number], 4240657, 5756183, 697672, 615549, 260187 #### [facility] [address] [place], [place] [id number] Manager Garden: Arie Gupta MD GOT 54 unit/L High 15-37 [facility] Comment on above: Result Comment: Luzmaria puncture should occur prior to sulfasalazine and/or sulfapyridine administration due to the potential for falsely depressed results. Baseline assay values before administration of sulfasalazine and sulfapyridine therapy would not be affected. Performed By: #### 1 664262, CD:937498209, 5553378, 4396594, 786376, 081252, 692123 #### [facility] [address] [place] [address] Manager Garden: Arie Gupta MD GPT 72 unit/L High 16-61 [facility] Comment on above: Result Comment: Luzmaria puncture should occur prior to sulfasalazine and/or sulfapyridine administration due to the potential for falsely depressed results. Baseline assay values before administration of sulfasalazine and sulfapyridine therapy would not be affected. Performed By: #### 1 886564, CD:134530350, 5560116, 9458431, 042347, 085180, 119790 #### [facility] [address] [place] [address] Manager Garden: Arie Gupta MD Potassium [Moles/Vol] 3.6 mmol/L Normal 3.5-5.1 [facility] Comment on above: Performed By: #### 1 429381, CD:523854873, 1764285, 0746693, 019974, 806344, 115167 #### [facility] [address] [place] [address] Manager Garden: Arie Gupta MD Protein [Mass/Vol] 7.3 g/dL Normal 6.0-8.5 [facility] Comment on above: Performed By: #### 1 644100, CD:553305390, 7507464, 9543885, 498701, 135938, 697449 #### [facility] [address] [place] [address] Manager Garden: Arie Gupta MD Sodium [Moles/Vol] 137 mmol/L Normal 135-145 [facility] Comment on above: Performed By: #### 1 103845, CD:875371271, 7959367, 6783341, 252490, 885246, 240703 #### [facility] [address] [place] [address] Manager Garden: Arie Gupta MD Urea nitrogen [Mass/Vol] 9 mg/dL Low 10-20 [facility] Comment on above: Performed By: #### 1 099785, CD:211658648, 9523725, 7977694, 899578, 252006, 293128 #### [facility] [address] [place] [address] Manager Garden: Arie Gupta MD D Dimer HSon 03-22-2022 D Dimer HS 310 ng/mL FEU Normal <=499 [facility] Comment on above: Result Comment: Excl usion of PE and DVT The D Dimer HS assay is reported in ng/ml Fibrinogen Equivalent Units (FEU). Per powderman?s instructions for use, a value less than 500ng/ml (FEU) may help to exclude DVT and /or PE in outpatients when the assay is used with a clinical pretest probability assessment. D-Dimer used for DIC Screens Assay results should be used with other information, including the clinical context in forming a diagnosis. Performed By: #### 1 464958, CD:905474965, 6470441, 2504973, 784690, 712426, 446525 #### [facility] [address] [place] [address] Manager Garden: Arie Gupta MD HEMOon 03-22-2022 DIFF? No Normal [facility] Comment on above: Performed By: #### 1 357915, CD:047437779, 0153958, 3844275, 949258, 349878, 829379 #### [facility] [address] [place] [address] Manager Garden: Arie Gupta MD Erythrocyte distribution width (RBC) [Ratio] 13.4 % Normal 11.5-14.5 [facility] Comment on above: Performed By: #### 1 662135, CD:884923441, 5751314, 4811245, 516578, 006358, 657706 #### [facility] [address] [place] [address] Manager Garden: Arie Gupta MD Hematocrit (Bld) [Volume fraction] 39.7 % Low 41.0-52.0 [facility] Comment on above: Performed By: #### 1 742970, CD:498623173, 1474597, 1134719, 462895, 016020, 571970 #### [facility] [address] [place] [address] Manager Garden: Arie Gupta MD Hemoglobin (Bld) [Mass/Vol] 13.7 g/dL Normal 13.5-17.5 [facility] Comment on above: Performed By: #### 1 861711, CD:968276874, 5113274, 0108278, 195585, 572217, 778263 #### [facility] [address] [place] [address] Manager Garden: Arie Gupta MD Instr WBC 10.2 Normal [facility] Comment on above: Performed By: #### 1 993266, CD:597591176, 3700569, 8771542, 202161, 986276, 943583 #### [facility] [address] [place] [address] Manager Garden: Arie Gupta MD MCH (RBC) [Entitic mass] 32.6 pg Normal 27.0-34.0 [facility] Comment on above: Performed By: #### 1 630659, CD:817080132, 0063171, 4377478, 370290, 483854, 907635 #### [facility] [address] [place] [address] Manager Garden: Arie Gupta MD MCHC (RBC) [Mass/Vol] 34.5 g/dL Normal 32.0-37.0 [facility] Comment on above: Performed By: #### 1 192365, CD:022811377, 7688709, 3399329, 080056, 352548, 550295 #### [facility] [address] [place] [address] Manager Garden: Arie Gupta MD MCV (RBC) [Entitic vol] 94.5 fL Normal 80.0-100.0 [facility] Comment on above: Performed By: #### 1 928093, CD:701029894, 9654597, 1190860, 906445, 595355, 631312 #### [facility] [address] [place] [address] Manager Garden: Arie Gupta MD Nucleated RBC 0 /100WBC Normal [facility] Comment on above: Performed By: #### 1 998270, CD:841873569, 9730257, 8968171, 523333, 093787, 116986 #### [facility] [address] [place] [address] Manager Garden: Arie Gupta MD Platelet 323 x10 Normal 150-450 [facility] Comment on above: Performed By: #### 1 182484, CD:669936520, 3038448, 9030550, 926896, 922931, 229291 #### [facility] [address] [place] [address] Manager Garden: Arie Gupta MD Platelet mean volume (Bld) [Entitic vol] 8.0 fL Normal 7.4-10.4 [facility] Comment on above: Performed By: #### 1 608756, CD:242646792, 3441633, 5771687, 115917, 663815, 300885 #### [facility] [address] [place] [address] Manager Garden: Arie Gupta MD RBC 4.21 x10 Low 4.70-6.10 [facility] Comment on above: Result Comment: Note : RBC morphology is normal unless otherwise stated. Evaluation performed only if differential is requested. Performed By: #### 1 473994, CD:[id number], 7352866, 4380823, 910218, 944628, 998903 #### [facility] [address] [place] [address] Manager Garden: Arie Gupta MD WBC 10.2 x10 Normal 4.5-11.0 [facility] Comment on above: Performed By: #### 1 443522, CD:516256825, 4180526, 1255114, 113013, 795713, 661094 #### [facility] [address] [place] [address] Manager Garden: Arie Gupta MD LIPID PNLon 03-22-2022 Calculated LDL Cholesterol NCAL Normal 60-130 [facility] Comment on above: Result Comment: Calc ulated LDL invalid due to Triglycerides >400 <100 mg/dl Optimal 100-129 mg/dl Near Optimal 130-159 mg/dl Borderline High 160-189 mg/dl High >=190 mg/dl Very High Performed By: #### 1 309140, CD:[id number], 8147000, 2123191, 490892, 190062, 063510 #### [facility] [address] [place] [address] Manager Garden: Arie Gupta MD Total Chol/HDL Chol Ratio 4.0 Normal [facility] Comment on above: Performed By: #### 1 057388, CD:401510802, 8766992, 2918811, 081216, 716525, 824706 #### [facility] [address] [place] [address] Manager Garden: Arie Gupta MD Cholesterol [Mass/Vol] 274 mg/dL High 100-200 [facility] Comment on above: Result Comment: <200 mg/dl Desirable 200-239 mg/dl Borderline High >= 240 mg/dl High Performed By: #### 1 560632, CD:[id number], 8187597, 5381412, 721483, 583121, 705940 #### [facility] [address] [place] [address] Manager Garden: Arie Gupta MD Cholesterol in HDL [Mass/Vol] 68 mg/dL High 40-60 [facility] Comment on above: Performed By: #### 1 989177, CD:115865275, 3735728, 8729826, 007791, 035163, 685416 #### [facility] [address] [place] [address] Manager Garden: Arie Gupta MD Triglyceride [Mass/Vol] 415 mg/dL High 30-150 [facility] Comment on above: Performed By: #### 1 169559, CD:987469860, 4765086, 8356214, 446992, 651432, 641397 #### [facility] [address] [place] [address] Manager Garden: Arie Gupta MD PSA SCRon 03-22-2022 Prostatic Specific Ag Screen .7 ng/mL Normal .0-4.0 [facility] Comment on above: Performed By: #### 1 111613, CD:[id number], 0451686, 9100810, 274362, 040091, 053474 #### [facility] [address] [place] [address] Manager Garden: Arie Gupta MD TSHon 03-22-2022 TSH Qn 1.77 m[IU]/L Normal 0.36-3.74 [facility] Comment on above: Result Comment: High levels of serum biotin may interfere with this test. Performed By: #### 1 022939, CD:[id number], 7588069, 0277915, 508577, 895856, 109538 #### [facility] [address] [place] [address] Manager Garden: Arie Gupta MD Coronavirus 2019on 0 COVID 19 Result RESIDENT IN DIAGNOSTIC RADIOLOGY Negative Normal Negative for COVID19 (SARS CoV2) by PCR. [facility] Comment on above: Result Comment: This test was developed and its performance characteristics determined by [facility] [place]. This test has been authorized by FDA under an Emergency Use Authorization (EUA). This test has been validated in accordance with the FDA's Guidance Document Policy for Diagnostics Testing in Laboratories Certified to Perform High Complexity Testing under CLIA prior to Emergency use Authorization for Coronavirus Disease 2019 during the Public Health Emergency issued on December 07, 2019. Performed By: #### C OVID #### [facility] [address] [place] [address] COVID 19 Source RESIDENT IN DIAGNOSTIC RADIOLOGY Nasopharyngeal Swab Normal [facility] Comment on above: Performed By: #### C OVID #### [facility] [address] [address] ED NOTEon 09-07-2020 ED NOTE HNO ID: [id number] Author: Beronica Abreu RN Service: ? Author Type: Registered Nurse Type: ED Notes Filed: 09/07/2020 11:13 AM Note Text: Pt. States he shared a offie space with someone that tested positive. He started having symptoms on WE and was told to come in. [facility] ED PROV NOTEon 09-07-2020 ED PROV NOTE HNO ID: [id number] Author: Ronald Hare (Pa) Service: Emergency Medicine Author Type: Physician F[place]utter Type: ED Provider Notes Filed: 09/07/2020 12:31 PM Note Text: ED Provider Note Patient Name: Ronald Amezquita SERVICE DATE: 09/07/20 History Patient presents with: Flu Like Symptoms 54 year old male presents to the emergency department for 2 days of productive cough and body aches. He reports working in close proximity with someone at his job that is Covid-19 positive and he desires testing. He states he has had associated nasal congestion and clear rhinorrhea. Does not noticc a color to his sputum.Reports OTC Nyquil and Dayquil have helped his symptoms. Denies fever, chills, sore throat, loss of taste/smell, headache, CP or SOB. Flu Like Symptoms Presenting symptoms: cough, myalgias and rhinorrhea Presenting symptoms: no fatigue, no fever, no nausea, no shortness of breath and no sore throat Cough: Cough characteristics: Productive Sputum characteristics: Nondescript Severity: Mild Onset quality: Gradual Duration: 2 days Timing: Intermittent Progression: Unchanged Chronicity: New Myalgias: Location: Generalized Quality: Aching Severity: Mild Onset quality: Gradual Duration: 2 days Timing: Intermittent Progression: Unchanged Rhinorrhea: Quality: Clear Severity: Mild Duration: 2 days Timing: Intermittent Progression: Unchanged Severity: Mild Onset quality: Gradual Duration: 2 days Progression: Unchanged Chronicity: New Relieved by: OTC medications (Nyquil and Dayquil) Worsened by: Nothing Associated symptoms: nasal congestion Associated symptoms: no chills, no ear pain and no neck stiffness PAST MEDICAL HISTORY Diagnosis Date - Anxiety - Hypertension PAST SURGICAL HISTORY Procedure Laterality Date - ORTHOPEDICS SURGERY HX No family history on file. Social History Tobacco Use - Smoking status: Former Smoker Types: Cigars - Smokeless tobacco: Current User Types: Snuff Substance and Sexual Activity - Alcohol use: Yes - Drug use: No - Sexual activity: Not on file ALLERGIES No Known Allergies Review of Systems Constitutional: Negative. Negative for activity change, chills, fatigue, fever and unexpected weight change. HENT: Positive for congestion and rhinorrhea. Negative for ear discharge, ear pain, facial swelling, hearing loss and sore throat. Eyes: Negative. Negative for photophobia, pain, redness and visual disturbance. Respiratory: Positive for cough. Negative for chest tightness and shortness of breath. Cardiovascular: Negative. Negative for chest pain, palpitations and leg swelling. Gastrointestinal: Negative. Negative for abdominal distention, abdominal pain and nausea. Genitourinary: Negative. Negative for decreased urine volume, frequency and urgency. Musculoskeletal: Positive for myalgias. Negative for arthralgias, back pain, joint swelling, neck pain and neck stiffness. Skin: Negative. Negative for pallor and rash. Neurological: Negative. Negative for light-headedness and numbness. Hematological: Negative for adenopathy. Does not bruise/bleed easily. Psychiatric/Behavioral: Negative. Negative for agitation, behavioral problems and confusion. All other systems reviewed and are negative. Physical Exam BP 145/94 Pulse 120 Temp (Src) 100.2 (Oral) Resp 16 Ht 6' 1 (1.85m) Wt 275 lb (124.7kg) SpO2 96% BMI 36.29 kg/(m2). O2 Therapy: Room Air Physical Exam Vitals signs and nursing note reviewed. Constitutional: Appearance: Normal appearance. He is well-developed. He is not diaphoretic. HENT: Head: Normocephalic and atraumatic. Right Ear: Hearing, tympanic membrane, ear canal and external ear normal. Left Ear: Hearing, tympanic membrane, ear canal and external ear normal. Nose: Nose normal. No mucosal edema or rhinorrhea. Mouth/Throat: Pharynx: Uvula midline. Eyes: General: Lids are normal. No scleral icterus. Conjunctiva/sclera: Conjunctivae normal. Right eye: Right conjunctiva is not injected. Left eye: Left conjunctiva is not injected. Neck: Musculoskeletal: Full passive range of motion without pain, normal range of motion and neck supple. Vascular: No JVD. Cardiovascular: Rate and Rhythm: Normal rate and regular rhythm. Heart sounds: Normal heart sounds, S1 normal and S2 normal. Pulmonary: Effort: Pulmonary effort is normal. No respiratory distress. Breath sounds: Normal breath sounds. No stridor. Abdominal: General: Bowel sounds are normal. There is no distension. Palpations: Abdomen is soft. Abdomen is not rigid. Tenderness: There is no abdominal tenderness. Hernia: No hernia is present. Musculoskeletal: Normal range of motion. General: No tenderness. Skin: General: Skin is warm and dry. Findings: No rash. Neurological: Mental Status: He is alert and oriented to person, place, and time. He is not disoriented. Psychiatric: Speech: Speech normal. Behavior: Behavior normal. Diagnostic Testing ED Labs Ordered and Reviewed - No data to display Procedures ED Course / Clinical Impression Clinical Impressions as of Sep 07 1216 Suspected COVID-19 virus infection Viral upper respiratory infection COVID-19 test performed per [facility] [place] policy for suspected COVID community exposure. MDM / Disposition / Plan 54 year old male reports to the ED with 2 days of cough and myalgias with nasal congestion. He reports a recent Covid-19 exposure at his job. He has a low-grade fever at 37.9 C in the ED today. He is hemodynamically stable and nontoxic in appearance. Covid-19 test was administered. He was educated on the importance of quarantine practices. Encouraged to continue his OTC symptomatic treatments. Encouraged to come back to the ED with any worsening of symptoms, chest pain, shortness of breath. Patient's heart rate improved to 98 in the emergency department with pulse oximetry of 100% on room air. This patient encounter involved the screening or treatment of novel coronavirus infection (COVID-19). A public health emergency existed at the time of the encounter Pt presented to the ED with fever, cough and myalgias. Upon examination my findings include No abnormal physical examination findings PPE was utilized. Covid 19 exposure to known positive person: Yes Flu test is Not indicated Covid 19 test was performed: Yes Results are Pending Patient was: discharged with instructions for self-quarantine The patient was DISCHARGED: Counseled patient regarding suspected diagnosis AND need for follow-up. Discharged home with verbal and written instructions. They were instructed to return as needed for persistent or worsening symptoms or any new concerns. Condition at time of disposition: stable SIGNATURE: LALI Sebastian (Pa) 09/07/20 1231 Normal [facility] CBC and Differentialon 03-13 Abs Baso 0.07 k/uL Normal <0.11 [facility] Comment on above: Performed By: #### C BCDIF, CMP, LIPB, LDLDCT, AHCV, HIV12C ####[facility], [place] [phone] Abs Mcclain 1.08 k/uL High <0.87 [facility] Comment on above: Performed By: #### C BCDIF, CMP, LIPB, LDLDCT, AHCV, HIV12C ####[place] [address] [address] [phone] Abs Neut 5.43 k/uL Normal 1.45-7.50 [facility] Comment on above: Performed By: #### C BCDIF, CMP, LIPB, LDLDCT, AHCV, HIV12C ####[place] [address] [address] [phone] Absolute nRBC <0.01 Normal <0.01 [facility] Comment on above: Performed By: #### C BCDIF, CMP, LIPB, LDLDCT, AHCV, HIV12C ####[place] [address] [address] [phone] Basophils/100 WBC (Bld) 0.8 % Normal [facility] Comment on above: Performed By: #### C BCDIF, CMP, LIPB, LDLDCT, AHCV, HIV12C ####[place] [address] [address] [place] [phone] DTYPE Auto Diff Normal [facility] Comment on above: Performed By: #### C BCDIF, CMP, LIPB, LDLDCT, AHCV, HIV12C ####[place] [address] [address] [place] [phone] Eosinophils (Bld) [#/Vol] 0.14 10*3/uL Normal <0.46 [facility] Comment on above: Performed By: #### C BCDIF, CMP, LIPB, LDLDCT, AHCV, HIV12C ####[place] [address] [address] [place] [phone] Eosinophils/100 WBC (Bld) 1.6 % Normal [facility] Comment on above: Performed By: #### C BCDIF, CMP, LIPB, LDLDCT, AHCV, HIV12C ####[place] [id number]CCourt[address] [place] [phone] Erythrocyte distribution width (RBC) [Ratio] 14.8 % Normal 11.5-15.0 [facility] Comment on above: Performed By: #### C BCDIF, CMP, LIPB, LDLDCT, AHCV, HIV12C ####[place] [address] [address] [place] [phone] Hematocrit (Bld) [Volume fraction] 46.4 % Normal 39.0-51.0 [facility] Comment on above: Performed By: #### C BCDIF, CMP, LIPB, LDLDCT, AHCV, HIV12C ####[place] [address] [address] [place] [phone] Hemoglobin (Bld) [Mass/Vol] 14.5 g/dL Normal 13.0-17.0 [facility] Comment on above: Performed By: #### C BCDIF, CMP, LIPB, LDLDCT, AHCV, HIV12C ####[place] [address] [address] [place] [phone] Lymphocytes (Bld) [#/Vol] 2.10 10*3/uL Normal 1.00-4.00 [facility] Comment on above: Performed By: #### C BCDIF, CMP, LIPB, LDLDCT, AHCV, HIV12C ####[place] [id number] AveClevelM[place], [place] [phone] Lymphocytes/100 WBC (Bld) 23.8 % Normal [facility] Comment on above: Performed By: #### C BCDIF, CMP, LIPB, LDLDCT, AHCV, HIV12C ####[place] [address] [address]ClevelM[address], [place] [phone] MCH (RBC) [Entitic mass] 30.1 pG Normal 26.0-34.0 [facility] Comment on above: Performed By: #### C BCDIF, CMP, LIPB, LDLDCT, AHCV, HIV12C ####[place] [address] [address], [place] [phone] MCHC (RBC) [Mass/Vol] 31.3 g/dL Normal 30.5-36.0 [facility] Comment on above: Performed By: #### C BCDIF, CMP, LIPB, LDLDCT, AHCV, HIV12C ####[place] [address] [address], [place] [phone] MCV (RBC) [Entitic vol] 96.5 fL Normal 80.0-100.0 [facility] Comment on above: Performed By: #### C BCDIF, CMP, LIPB, LDLDCT, AHCV, HIV12C ####[place] [address] [address], [place] [phone] Monocytes/100 WBC (Bld) 12.2 % Normal [facility] Comment on above: Performed By: #### C BCDIF, CMP, LIPB, LDLDCT, AHCV, HIV12C ####[place] [address] [address], [place] [phone] Neutrophils/100 WBC (Bld) 61.6 % Normal [facility] Comment on above: Performed By: #### C BCDIF, CMP, LIPB, LDLDCT, AHCV, HIV12C ####[place] [address] [address], [place] [phone] NRBCs 0.0 /100 WBC Normal 0 [facility] Comment on above: Performed By: #### C BCDIF, CMP, LIPB, LDLDCT, AHCV, HIV12C ####[place] [address], [place] [phone] Platelet mean volume (Bld) [Entitic vol] 9.7 fL Normal 9.0-12.7 [facility] Comment on above: Performed By: #### C BCDIF, CMP, LIPB, LDLDCT, AHCV, HIV12C ####[place] [address] [address], [place] [phone] Platelets (Bld) [#/Vol] 344 10*3/uL Normal 150-400 [facility] Comment on above: Performed By: #### C BCDIF, CMP, LIPB, LDLDCT, AHCV, HIV12C ####[place] [address], [place] [phone] RBC (Bld) [#/Vol] 4.81 10*6/uL Normal 4.20-6.00 [facility] Comment on above: Performed By: #### C BCDIF, CMP, LIPB, LDLDCT, AHCV, HIV12C ####[place] [address] [address], [place] [phone] WBC (Bld) [#/Vol] 8.82 10*3/uL Normal 3.70-11.00 [facility] Comment on above: Performed By: #### C BCDIF, CMP, LIPB, LDLDCT, AHCV, HIV12C ####[place] [address] [address], [place] [phone] Comp Metabolic Panelon 03-13 Albumin [Mass/Vol] 4.9 g/dL Normal 3.9-4.[address] [facility] Comment on above: Performed By: #### C BCDIF, CMP, LIPB, LDLDCT, AHCV, HIV12C ####[facility]CM[address], [place] [phone] ALP [Catalytic activity/Vol] 72 U/L Normal 38-113 [facility] Comment on above: Performed By: #### C BCDIF, CMP, LIPB, LDLDCT, AHCV, HIV12C ####[facility]CM[address], [place] [phone] ALT [Catalytic activity/Vol] 36 U/L Normal 10-54 [facility] Comment on above: Performed By: #### C BCDIF, CMP, LIPB, LDLDCT, AHCV, HIV12C ####[place] [address] [place] [phone] Anion gap [Moles/Vol] 16 mmol/L Normal 9-18 [facility] Comment on above: Performed By: #### C BCDIF, CMP, LIPB, LDLDCT, AHCV, HIV12C ####[place] [address], [place] [phone] AST [Catalytic activity/Vol] 28 U/L Normal 14-40 [facility] Comment on above: Performed By: #### C BCDIF, CMP, LIPB, LDLDCT, AHCV, HIV12C ####[place] [address], [place] [phone] Bilirubin [Mass/Vol] 0.4 mg/dL Normal 0.2-1.3 [facility] Comment on above: Performed By: #### C BCDIF, CMP, LIPB, LDLDCT, AHCV, HIV12C ####[facility]CM[address], [place] [phone] Calcium [Mass/Vol] 9.6 mg/dL Normal 8.5-10.[address] [facility] Comment on above: Performed By: #### C BCDIF, CMP, LIPB, LDLDCT, AHCV, HIV12C ####[facility]CM[place], [place] [phone] Chloride [Moles/Vol] 99 mmol/L Normal 97-105 [facility] Comment on above: Performed By: #### C BCDIF, CMP, LIPB, LDLDCT, AHCV, HIV12C ####[facility]CM[address], [place] [phone] CO2 [Moles/Vol] 23 mmol/L Normal 22-30 [facility] Comment on above: Performed By: #### C BCDIF, CMP, LIPB, LDLDCT, AHCV, HIV12C ####[facility] [place] [phone] Creatinine [Mass/Vol] 1.17 mg/dL Normal 0.73-1.22 [facility] Comment on above: Performed By: #### C BCDIF, CMP, LIPB, LDLDCT, AHCV, HIV12C ####[facility]CM[address], [place] [phone] eGFR- Amer. >[address] [facility] Comment on above: Performed By: #### C BCDIF, CMP, LIPB, LDLDCT, AHCV, HIV12C ####[facility]CCourt[address] [place] [phone] GFR/1.73 sq M predicted among non-blacks MDRD (S/P/Bld) [Vol rate/Area] mL/min/{1.73_m2} Normal [facility] Comment on above: Result Comment: eGFR (Estimated GFR) Units of measure: mL/min/1.73 meters squared eGFR is derived from the reexpressed MDRD Study equation using the following parameters: serum creatinine, age, gender and race. The creatinine assay has been calibrated to be traceable to IDMS. An eGFR <60 mL/min/1.73m2 for >3 months is consistent with chronic kidney disease. Refer to KDOQI guidelines for clinical interpretation. In patients with unstable renal function, e.g. those with acute kidney injury, the eGFR may not accurately reflect actual GFR. Performed By: #### C BCDIF, CMP, LIPB, LDLDCT, AHCV, HIV12C ####[facility]CM[address], [place] [phone] Glucose [Mass/Vol] 101 mg/dL High 74-[address] [facility] Comment on above: Result Comment: The [place] Diabetes Association (ADA) provides guidance for cutoff values for fasting glucose and random glucose. The ADA defines fasting as no caloric intake for at least 8 hours. Fasting plasma glucose results between 100 to 125 mg/dL indicate increased risk for diabetes (prediabetes). Fasting plasma glucose results greater than or equal to 126 mg/dL meet the criteria for diagnosis of diabetes. In the absence of unequivocal hyperglycemia, results should be confirmed by repeat testing. In a patient with classic symptoms of hyperglycemia or hyperglycemic crisis, random plasma glucose results greater than or equal to 200 mg/dL meet the criteria for diagnosis of diabetes. Reference: Standards of Medical Care in Diabetes 2016, [place] [employer]. Diabetes Care. 2016.39(Suppl 1). Performed By: #### C BCDIF, CMP, LIPB, LDLDCT, AHCV, HIV12C ####[address] [phone] Potassium [Moles/Vol] 3.6 mmol/L Low 3.7-5.1 [facility] Comment on above: Performed By: #### C BCDIF, CMP, LIPB, LDLDCT, AHCV, HIV12C ####[facility] [place] [address] [phone] Protein [Mass/Vol] 7.3 g/dL Normal 6.3-8.[address] [facility] Comment on above: Performed By: #### C BCDIF, CMP, LIPB, LDLDCT, AHCV, HIV12C ####[facility] [place], [place] [phone] Sodium [Moles/Vol] 138 mmol/L Normal 136-[address] [facility] Comment on above: Performed By: #### C BCDIF, CMP, LIPB, LDLDCT, AHCV, HIV12C ####[address] [phone] Urea nitrogen [Mass/Vol] 9 mg/dL Normal 9-24 [facility] Comment on above: Performed By: #### C BCDIF, CMP, LIPB, LDLDCT, AHCV, HIV12C ####[place] [address] [place], [place] [phone] [id number] Ag +HIV12 Abon 03-13 HIV 12 Ag/Ab Non Reactive Normal Non Reactive [facility] Comment on above: Performed By: #### C BCDIF, CMP, LIPB, LDLDCT, AHCV, HIV12C ####[address] [phone] HIV-1/2 Antibody Normal [facility] Comment on above: Result Comment: Test Not Indicated Negative No evidence of HIV-1 or HIV-2 infection. Should recent infection be suspected, repeat testing may be considered 2-3 weeks after this draw. HIV Information: [place] Rev. Code 3701.243(E): This information has been disclosed to you from confidential records protected from disclosure by state law. You shall make no further disclosure of this information without the specific, written, and informed release of the individual to whom it pertains or as otherwise permitted by state law. A general authorization for the release of medical or other information is not sufficient for the purpose of the release of HIV test results or diagnoses. Performed By: #### C BCDIF, CMP, LIPB, LDLDCT, AHCV, HIV12C ####[place] [address] [place], [place] [phone] Hepatitis C Ab IAon 03-13-20 20 Hepatitis C Ab IA Negative Normal Negative [facility] Comment on above: Performed By: #### C BCDIF, CMP, LIPB, LDLDCT, AHCV, HIV12C ####[facility] [place], [place] [phone] LDL-Chol, Directon 0 LDL-Chol, Direct 141 mg/dL High <100 [facility] Comment on above: Result Comment: <100 mg/dL, Optimal 100-129 mg/dL, Near optimal/above optimal 130-159 mg/dL, Borderline high 160-189 mg/dL, High >189 mg/dL, Very high Secondary prevention optimal LDL Cholesterol levels are recommended to be < 70 mg/dL Performed By: #### C BCDIF, CMP, LIPB, LDLDCT, AHCV, HIV12C ####[facility], [place] [phone] VLDL Cholesterol 46 mg/dL High <30 [facility] Comment on above: Performed By: #### C BCDIF, CMP, LIPB, LDLDCT, AHCV, HIV12C ####[facility], [place] [phone] Lipid Panel, [facility] 020 Cholesterol [Mass/Vol] 243 mg/dL High <200 [facility] Comment on above: Result Comment: <200 mg/dL, Desirable 200-239 mg/dL, Borderline high >239 mg/dL, High Performed By: #### C BCDIF, CMP, LIPB, LDLDCT, AHCV, HIV12C ####[facility], [place] [phone] Cholesterol in HDL [Mass/Vol] 56 mg/dL Normal >39 [facility] Comment on above: Result Comment: 40-5 9 mg/dL, Acceptable >59 mg/dL, High: Negative risk factor for coronary heart disease <40 mg/dL, Low: Positive risk factor for coronary heart disease Performed By: #### C BCDIF, CMP, LIPB, LDLDCT, AHCV, HIV12C ####[facility], [place] [phone] Cholesterol in LDL [Mass/Vol] Unable to calculate due to increased Triglycerides. See LDL-Chol, Direct. Normal <100 [facility] Comment on above: Performed By: #### C BCDIF, CMP, LIPB, LDLDCT, AHCV, HIV12C ####[facility] [id number] [place], [place] [phone] Fasting Time Unknown Normal [facility] Comment on above: Performed By: #### C BCDIF, CMP, LIPB, LDLDCT, AHCV, HIV12C ####[place] [address] [place], [place] [phone] LDL:HDL Ratio Unable to calculate due to elevated Triglycerides. Normal <2.54 [facility] Comment on above: Result Comment: Refe rence: 1. National Cholesterol Education Program ATP III Guideline At-A-Glance Quick Desk Reference: National Heart, Lung, and Blood [place]. National Institutes of Health. 2001: NIH Publication No. 01-3305. 2. An International Atherosclerosis Society position paper: global recommendations for the management of dyslipidemia: executive summary, Atherosclerosis. 2014: 232(2):410-413. Performed By: #### C BCDIF, CMP, LIPB, LDLDCT, AHCV, HIV12C ####[address] [phone] Non HDL Cholesterol 187 mg/dL High <130 [facility] Comment on above: Result Comment: <130 mg/dL, Optimal 130-159 mg/dL, Near optimal/above optimal 160-189 mg/dL, Borderline high 190-219 mg/dL, High >219 mg/dL, Very high Secondary prevention optimal non HDL Cholesterol levels are recommended to be < 100 mg/dL Performed By: #### C BCDIF, CMP, LIPB, LDLDCT, AHCV, HIV12C ####[place] [address] [place], [place] [phone] TC:HDL Ratio 4.34 Normal <5.10 [facility] Comment on above: Performed By: #### C BCDIF, CMP, LIPB, LDLDCT, AHCV, HIV12C ####[place] [address] [place], [place] [phone] Triglyceride [Mass/Vol] 409 mg/dL High <150 [facility] Comment on above: Result Comment: <150 mg/dL, Normal 150-199 mg/dL, Borderline high 200-499 mg/dL, High >499 mg/dL, Very high Performed By: #### C BCDIF, CMP, LIPB, LDLDCT, AHCV, HIV12C ####[facility] [place], [place] [phone] VLDL Cholesterol Unable to calculate due to increased Triglycerides. See LDL-Chol, Direct. Normal <30 [facility] Comment on above: Performed By: #### C BCDIF, CMP, LIPB, LDLDCT, AHCV, HIV12C ####[facility] [id number] [place], [place] [phone] PROGRESSon 03-13-2020 PROGRESS HNO ID: [id number] Author: Veronica Virgen Service: ? Author Type: Physician Type: Progress Notes Filed: 03/13/2020 2:09 PM Note Text: 54 year old male who is present for Recheck (f/u - refills , - UPDATE) and Referral Information (needs consult to ortho). HPI Needs referral for Dupoctaviarens' Has had EGD's and colonoscopies, controlled with omeprazole OCD under control, work good Partner Rosario watching, wishes chest mole checked Walking park on weekends Not sleeping well for months, running plant with ex offender employees Reviewed medicaitons and screens Current Outpatient Medications Medication Sig Dispense Refill - buPROPion XL (WELLBUTRIN XL) 150 mg 24 hr tablet TAKE 1 TABLET BY MOUTH ONCE DAILY. NO FURTHER REFILLS WITHOUT APPOINTMENT 30 tablet 0 - losartan (COZAAR) 100 mg tablet TAKE 1 TABLET BY MOUTH ONCE DAILY. NO FURTHER REFILLS WITHOUT APPOINTMENT 30 tablet 0 - hydroCHLOROthiazide (HYDRODIURIL, ESIDRIX) 25 mg tablet TAKE 1 TABLET BY MOUTH ONCE DAILY. NO FURTHER REFILLS WITHOUT APPOINTMENT 30 tablet 0 - omeprazole (PRILOSEC) 20 mg capsule Take 1 capsule by mouth once daily. 30 capsule 3 No current facility-administered medications for this visit. Review of Systems Respiratory: Negative for cough and shortness of breath. Cardiovascular: Negative for chest pain. Gastrointestinal: Negative for abdominal pain and heartburn. Physical Exam Constitutional: He is oriented to person, place, and time and well-developed, well-nourished, and in no distress. HENT: Head: Normocephalic and atraumatic. Neck: No tracheal deviation present. No thyromegaly present. Cardiovascular: Normal rate, regular rhythm and normal heart sounds. No murmur heard. Pulmonary/Chest: Effort normal and breath sounds normal. He has no wheezes. He has no rales. Abdominal: Soft. He exhibits no mass. There is no abdominal tenderness. Musculoskeletal: General: No edema. Lymphadenopathy: He has no cervical adenopathy. Neurological: He is alert and oriented to person, place, and time. Skin: Skin is warm and dry. 3-4 mm anular homogeneous mole on chest Psychiatric: Mood, affect and judgment normal. (I10) Essential hypertension (primary encounter diagnosis) Plan: losartan (COZAAR) 100 mg tablet, hydroCHLOROthiazide (HYDRODIURIL, ESIDRIX) 25 mg tablet (F41.9) Anxiety Plan: buPROPion XL (WELLBUTRIN XL) 150 mg 24 hr tablet (M72.0) Dupuytren's contracture of right hand (Z12.11) Colon cancer screening (K31.7) Gastric polyps (Z23) Need for shingles vaccine Plan: zoster vaccine, recombinant, adjuvanted, (SHINGRIX, PF,) 50 mcg/0.5 mL injection (Z11.4) Screening for HIV (human immunodeficiency virus) Plan: HIV 1 2 COMBO(AG/AB),WITH REFLEX TO DIFFERENTIATION (Z11.59) Need for hepatitis C screening test Plan: HEP C AB IA BLOOD Veronica Virgen MD Total time spent 25 minutes Normal [facility] OBSOLETEon 03-07-2020 OBSOLETE Refill (IFPWIL) RONALD AMEZQUITA ([id number]) 1965 M Date Time Provider Department 03/07/20 VERONICA VIRGEN During your visit today, we recorded the following information about you: Allergies As of Date: 03/07/2020 (No Known Allergies) Date Reviewed: 03/15/2019 Reviewed by: Genaro Barron - Fully Assessed Reason for Visit: Refill Request [94] Visit Diagnosis:Anxiety [F41.9] Order(s):buPROPion XL (WELLBUTRIN XL) 150 mg 24 hr tabletTAKE 1 TABLET BY MOUTH ONCE DAILY. NO FURTHER REFILLS WITHOUT APPOINTMENTDisp: 30 tabletRfl: 0 Prescriptions as of 03/07/2020 Sig: BUPROPION XL 150 MG TAB TAKE 1 TABLET BY MOUTH ONCE D* LOSARTAN 100 MG TABLET TAKE 1 TABLET BY MOUTH ONCE D* HYDROCHLOROTHIAZIDE 25 MG TAB* TAKE 1 TABLET BY MOUTH ONCE D* OMEPRAZOLE 20 MG CAPSULE,MARIAM* Take 1 capsule by mouth once * PANTOPRAZOLE 40 MG TABLET,DEL* Take 1 tablet by mouth once d* Problem List As Of Date 03/07/2020 Noted Resolved Essential hypertension [I10] 03/15/2019 Gastric polyps [K31.7] 03/15/2019 Anxiety [F41.9] 03/15/2019 Dupuytren's contracture of right hand [M72.0] 03/15/2019 History of deep vein thrombosis (DVT) of lower *03/15/2019 Prescriptions ordered this encounter Disp Refills Start End BUPROPION XL 150 MG TAB 30 t* 0 03/09/2020 Route: ORAL Sig: TAKE 1 TABLET BY MOUTH ONCE DAILY. NO FURTHER REFILLS WITHOUT APPOINTMENT Medications Discontinued During This Encounter buPROPion XL (WELLBUTRIN XL) 150 mg * 30 t* 0 02/11/2020 03/09/2020 Cmt: NEED CHIO FOR VIRTUAL CHIO Route: ORAL Sig: TAKE 1 TABLET BY MOUTH ONCE DAILY. NO FURTHER REFILLS WITHOUT APPOINTMENT Disc: Reason for discontinue is not on file. Encounter Status:Closed by VERONICA VIRGEN MD on 03/09/20 [facility] OBSOLETEon 02-16-2020 OBSOLETE Refill (IFPWIL) RONALD AMEZQUITA ([id number]) 1965 M Date Time Provider Department 02/16/20 VERONICA VIRGEN During your visit today, we recorded the following information about you: Allergies As of Date: 02/16/2020 (No Known Allergies) Date Reviewed: 03/15/2019 Reviewed by: Genaro Barron - Fully Assessed Reason for Visit: Refill Request [94] Visit Diagnosis:Essential hypertension [I10] Order(s):losartan (COZAAR) 100 mg tabletTAKE 1 TABLET BY MOUTH ONCE DAILY. NO FURTHER REFILLS WITHOUT APPOINTMENTDisp: 30 tabletRfl: 0 Prescriptions as of 02/16/2020 Sig: LOSARTAN 100 MG TABLET TAKE 1 TABLET BY MOUTH ONCE D* HYDROCHLOROTHIAZIDE 25 MG TAB* TAKE 1 TABLET BY MOUTH ONCE D* BUPROPION XL 150 MG TAB TAKE 1 TABLET BY MOUTH ONCE D* OMEPRAZOLE 20 MG CAPSULE,MARIAM* Take 1 capsule by mouth once * PANTOPRAZOLE 40 MG TABLET,DEL* Take 1 tablet by mouth once d* Problem List As Of Date 02/16/2020 Noted Resolved Essential hypertension [I10] 03/15/2019 Gastric polyps [K31.7] 03/15/2019 Anxiety [F41.9] 03/15/2019 Dupuytren's contracture of right hand [M72.0] 03/15/2019 History of deep vein thrombosis (DVT) of lower *03/15/2019 Prescriptions ordered this encounter Disp Refills Start End LOSARTAN 100 MG TABLET 30 t* 0 02/18/2020 Route: ORAL Sig: TAKE 1 TABLET BY MOUTH ONCE DAILY. NO FURTHER REFILLS WITHOUT APPOINTMENT Medications Discontinued During This Encounter losartan (COZAAR) 100 mg tablet 30 t* 0 01/17/2020 02/18/2020 Route: ORAL Sig: Take 1 tablet by mouth once daily. NO FURTHER REFILLS WITHOUT APPOINTMENT Disc: Reason for discontinue is not on file. Encounter Status:Closed by VERONICA VIRGEN MD on 02/18/20 [facility] OBSOLETEon 02-12-2020 OBSOLETE Refill (IFPWIL) RONALD AMEZQUITA ([id number]) 1965 M Date Time Provider Department 02/12/20 VERONICA VIRGEN During your visit today, we recorded the following information about you: Allergies As of Date: 02/12/2020 (No Known Allergies) Date Reviewed: 03/15/2019 Reviewed by: Genaro Barron - Fully Assessed Reason for Visit: Refill Request [94] Visit Diagnosis:Essential hypertension [I10] Order(s):hydroCHLOROthi azide (HYDRODIURIL, ESIDRIX) 25 mg tabletTAKE 1 TABLET BY MOUTH ONCE DAILY. NO FURTHER REFILLS WITHOUT APPOINTMENTDisp: 30 tabletRfl: 0 Prescriptions as of 02/12/2020 Sig: HYDROCHLOROTHIAZIDE 25 MG TAB* TAKE 1 TABLET BY MOUTH ONCE D* BUPROPION XL 150 MG TAB TAKE 1 TABLET BY MOUTH ONCE D* LOSARTAN 100 MG TABLET Take 1 tablet by mouth once d* OMEPRAZOLE 20 MG CAPSULE,MARIAM* Take 1 capsule by mouth once * PANTOPRAZOLE 40 MG TABLET,DEL* Take 1 tablet by mouth once d* Problem List As Of Date 02/12/2020 Noted Resolved Essential hypertension [I10] 03/15/2019 Gastric polyps [K31.7] 03/15/2019 Anxiety [F41.9] 03/15/2019 Dupuytren's contracture of right hand [M72.0] 03/15/2019 History of deep vein thrombosis (DVT) of lower *03/15/2019 Prescriptions ordered this encounter Disp Refills Start End HYDROCHLOROTHIAZIDE 25 MG TABLET 30 t* 0 02/17/2020 Route: ORAL Sig: TAKE 1 TABLET BY MOUTH ONCE DAILY. NO FURTHER REFILLS WITHOUT APPOINTMENT Medications Discontinued During This Encounter hydroCHLOROthiazide (HYDRODIURIL, ES* 30 t* 0 01/17/2020 02/17/2020 Route: ORAL Sig: Take 1 tablet by mouth once daily. NO FURTHER REFILLS WITHOUT APPOINTMENT Disc: Reason for discontinue is not on file. Encounter Status:Closed by VERONICA VIRGEN MD on 02/17/20 [facility] OBSOLETEon 02-11-2020 OBSOLETE Refill (IFPWIL) RONALD AMEZQUITA ([id number]) 1965 [place] Date Time Provider Department 02/11/20 VERONICA VIRGEN IFPWIL During your visit today, we recorded the following information about you: Allergies As of Date: 02/11/2020 (No Known Allergies) Date Reviewed: 03/15/2019 Reviewed by: Genaro Barron - Fully Assessed Reason for Visit: Refill Request [94] Visit Diagnosis:Anxiety [F41.9] Order(s):buPROPion XL (WELLBUTRIN XL) 150 mg 24 hr tabletTAKE 1 TABLET BY MOUTH ONCE DAILY. NO FURTHER REFILLS WITHOUT APPOINTMENTDisp: 30 tabletRfl: 0 Prescriptions as of 02/11/2020 Sig: BUPROPION XL 150 MG TAB TAKE 1 TABLET BY MOUTH ONCE D* LOSARTAN 100 MG TABLET Take 1 tablet by mouth once d* HYDROCHLOROTHIAZIDE 25 MG TAB* Take 1 tablet by mouth once d* OMEPRAZOLE 20 MG CAPSULE,MARIAM* Take 1 capsule by mouth once * PANTOPRAZOLE 40 MG TABLET,DEL* Take 1 tablet by mouth once d* Problem List As Of Date 02/11/2020 Noted Resolved Essential hypertension [I10] 03/15/2019 Gastric polyps [K31.7] 03/15/2019 Anxiety [F41.9] 03/15/2019 Dupuytren's contracture of right hand [M72.0] 03/15/2019 History of deep vein thrombosis (DVT) of lower *03/15/2019 Prescriptions ordered this encounter Disp Refills Start End BUPROPION XL 150 MG TAB 30 t* 0 02/11/2020 Cmt: NEED CHIO FOR VIRTUAL CHIO Route: ORAL Sig: TAKE 1 TABLET BY MOUTH ONCE DAILY. NO FURTHER REFILLS WITHOUT APPOINTMENT Medications Discontinued During This Encounter buPROPion XL (WELLBUTRIN XL) 150 mg * 30 t* 0 01/17/2020 02/11/2020 Route: ORAL Sig: Take 1 tablet by mouth once daily. NO FURTHER REFILLS WITHOUT APPOINTMENT Disc: Reason for discontinue is not on file. Encounter Status:Closed by VERONICA VIRGEN MD on 02/11/20 [facility] OBSOLETEon 12-23-2019 OBSOLETE Refill (IFPWIL) RONALD AMEZQUITA ([id number]) 1965 [place] Date Time Provider Department 12/23/19 VERONICA VIRGEN [id number] During your visit today, we recorded the following information about you: Allergies As of Date: 12/23/2019 (No Known Allergies) Date Reviewed: 03/15/2019 Reviewed by: Genaro Barron - Fully Assessed Reason for Visit: Refill Request [94] Visit Diagnosis:Anxiety [F41.9] Order(s):losartan (COZAAR) 100 mg tabletTake 1 tablet by mouth once daily.Disp: 30 tabletRfl: 0 buPROPion XL (WELLBUTRIN XL) 150 mg 24 hr tabletTake 1 tablet by mouth once daily.Disp: 30 tabletRfl: 0 Prescriptions as of 12/23/2019 Sig: LOSARTAN 100 MG TABLET Take 1 tablet by mouth once d* BUPROPION XL 150 MG TAB Take 1 tablet by mouth once d* HYDROCHLOROTHIAZIDE 25 MG TAB* Take 1 tablet by mouth once d* OMEPRAZOLE 20 MG CAPSULE,MARIAM* Take 1 capsule by mouth once * PANTOPRAZOLE 40 MG TABLET,DEL* Take 1 tablet by mouth once d* Problem List As Of Date 12/23/2019 Noted Resolved Essential hypertension [I10] 03/15/2019 Gastric polyps [K31.7] 03/15/2019 Anxiety [F41.9] 03/15/2019 Dupuytren's contracture of right hand [M72.0] 03/15/2019 History of deep vein thrombosis (DVT) of lower *03/15/2019 Prescriptions ordered this encounter Disp Refills Start End LOSARTAN 100 MG TABLET 30 t* 0 12/23/2019 Cmt: Pt must make chio prior to further ov Route: ORAL Sig: Take 1 tablet by mouth once daily. BUPROPION XL 150 MG TAB 30 t* 0 12/23/2019 Cmt: Must make ov prior to further refill Route: ORAL Sig: Take 1 tablet by mouth once daily. Medications Discontinued During This Encounter losartan (COZAAR) 100 mg tablet 10/06/2019 12/23/2019 Class: Historical Med Sig: Disc: Reason for discontinue is not on file. buPROPion XL (WELLBUTRIN XL) 150 mg * 30 t* 0 11/27/2019 12/23/2019 Cmt: Due for ov Sig: TAKE 1 TABLET BY MOUTH EVERY DAY Disc: Reason for discontinue is not on file. Encounter Status:Closed by VERONICA VIRGEN MD on 12/23/19 [facility] OBSOLETEon 12-20-2019 OBSOLETE Refill (MPC92) RONALD AMEZQUITA ([id number]) 1965 [place] Date Time Provider Department 12/20/19 VERONICA VIRGEN [id number] During your visit today, we recorded the following information about you: Allergies As of Date: 12/20/2019 (No Known Allergies) Date Reviewed: 03/15/2019 Reviewed by: Genaro Barron - Fully Assessed Reason for Visit: Refill Request [94] Order(s):hydroCHLOROthi azide (HYDRODIURIL, ESIDRIX) 25 mg tabletTake 1 tablet by mouth once daily. PATIENT NEEDS APPOINTMENT WITH DOCTOR AND FASTING LABSDisp: 30 tabletRfl: 0 Prescriptions as of 12/20/2019 Sig: HYDROCHLOROTHIAZIDE 25 MG TAB* Take 1 tablet by mouth once d* BUPROPION XL 150 MG TAB TAKE 1 TABLET BY MOUTH EVERY * OMEPRAZOLE 20 MG CAPSULE,MARIAM* Take 1 capsule by mouth once * PANTOPRAZOLE 40 MG TABLET,DEL* Take 1 tablet by mouth once d* Problem List As Of Date 12/20/2019 Noted Resolved Essential hypertension [I10] 03/15/2019 Gastric polyps [K31.7] 03/15/2019 Anxiety [F41.9] 03/15/2019 Dupuytren's contracture of right hand [M72.0] 03/15/2019 History of deep vein thrombosis (DVT) of lower *03/15/2019 Prescriptions ordered this encounter Disp Refills Start End HYDROCHLOROTHIAZIDE 25 MG TABLET 30 t* 0 12/20/2019 Route: ORAL Sig: Take 1 tablet by mouth once daily. PATIENT NEEDS APPOINTMENT WITH DOCTOR AND FASTING LABS Medications Discontinued During This Encounter hydroCHLOROthiazide (HYDRODIURIL, ES* 30 t* 5 07/08/2019 12/20/2019 Sig: TAKE 1 TABLET BY MOUTH EVERY DAY Disc: Reason for discontinue is not on file. Encounter Status:Closed by VERONICA VIRGEN MD on 12/20/19 [facility] OBSOLETEon 11-26-2019 OBSOLETE Refill (MPC92) RONALD AMEZQUITA ([id number]) 1965 [place] Date Time Provider Department 11/26/19 VERONICA VIRGEN [id number] During your visit today, we recorded the following information about you: Allergies As of Date: 11/26/2019 (No Known Allergies) Date Reviewed: 03/15/2019 Reviewed by: Genaro Barron - Fully Assessed Reason for Visit: Refill Request [94] Visit Diagnosis:Anxiety [F41.9] Order(s):buPROPion XL (WELLBUTRIN XL) 150 mg 24 hr tabletTAKE 1 TABLET BY MOUTH EVERY DAYDisp: 30 tabletRfl: 0 Prescriptions as of 11/26/2019 Sig: BUPROPION XL 150 MG TAB TAKE 1 TABLET BY MOUTH EVERY * HYDROCHLOROTHIAZIDE 25 MG TAB* TAKE 1 TABLET BY MOUTH EVERY * OMEPRAZOLE 20 MG CAPSULE,MARIAM* Take 1 capsule by mouth once * PANTOPRAZOLE 40 MG TABLET,DEL* Take 1 tablet by mouth once d* Problem List As Of Date 11/26/2019 Noted Resolved Essential hypertension [I10] 03/15/2019 Gastric polyps [K31.7] 03/15/2019 Anxiety [F41.9] 03/15/2019 Dupuytren's contracture of right hand [M72.0] 03/15/2019 History of deep vein thrombosis (DVT) of lower *03/15/2019 Prescriptions ordered this encounter Disp Refills Start End BUPROPION XL 150 MG TAB 30 t* 0 11/27/2019 Cmt: Due for ov Sig: TAKE 1 TABLET BY MOUTH EVERY DAY Medications Discontinued During This Encounter buPROPion XL (WELLBUTRIN XL) 150 mg * 30 t* 0 10/28/2019 11/27/2019 Cmt: Due for ov Sig: TAKE 1 TABLET BY MOUTH EVERY DAY Disc: Reason for discontinue is not on file. Encounter Status:Closed by VERONICA VIRGEN MD on 11/27/19 [facility] OBSOLETEon 10-27-2019 OBSOLETE Refill (MPC92) RONALD AMEZQUITA ([id number]) 1965 [place] Date Time Provider Department 10/27/19 VERONICA VIRGEN [id number] During your visit today, we recorded the following information about you: Allergies As of Date: 10/27/2019 (No Known Allergies) Date Reviewed: 03/15/2019 Reviewed by: Genaro Barron - Fully Assessed Reason for Visit: Refill Request [94] Visit Diagnosis:Anxiety [F41.9] Order(s):buPROPion XL (WELLBUTRIN XL) 150 mg 24 hr tabletTAKE 1 TABLET BY MOUTH EVERY DAYDisp: 30 tabletRfl: 0 Prescriptions as of 10/27/2019 Sig: BUPROPION XL 150 MG TAB TAKE 1 TABLET BY MOUTH EVERY * HYDROCHLOROTHIAZIDE 25 MG TAB* TAKE 1 TABLET BY MOUTH EVERY * OMEPRAZOLE 20 MG CAPSULE,MARIAM* Take 1 capsule by mouth once * PANTOPRAZOLE 40 MG TABLET,DEL* Take 1 tablet by mouth once d* Problem List As Of Date 10/27/2019 Noted Resolved Essential hypertension [I10] 03/15/2019 Gastric polyps [K31.7] 03/15/2019 Anxiety [F41.9] 03/15/2019 Dupuytren's contracture of right hand [M72.0] 03/15/2019 History of deep vein thrombosis (DVT) of lower *03/15/2019 Prescriptions ordered this encounter Disp Refills Start End BUPROPION XL 150 MG TAB 30 t* 0 10/28/2019 Cmt: Due for ov Sig: TAKE 1 TABLET BY MOUTH EVERY DAY Medications Discontinued During This Encounter buPROPion XL (WELLBUTRIN XL) 150 mg * 30 t* 0 09/23/2019 10/28/2019 Cmt: Due for ov Sig: TAKE 1 TABLET BY MOUTH EVERY DAY Disc: Reason for discontinue is not on file. Encounter Status:Closed by VERONICA VIRGEN MD on 10/28/19 [facility] OBSOLETEon 09-19-2019 OBSOLETE Refill (MPC92) RONALD AMEZQUITA ([id number]) 1965 [place] Date Time Provider Department 09/19/19 VERONICA VIRGEN [id number] During your visit today, we recorded the following information about you: Allergies As of Date: 09/19/2019 (No Known Allergies) Date Reviewed: 03/15/2019 Reviewed by: Genaro Barron - Fully Assessed Reason for Visit: Refill Request [94] Visit Diagnosis:Anxiety [F41.9] Order(s):buPROPion XL (WELLBUTRIN XL) 150 mg 24 hr tabletTAKE 1 TABLET BY MOUTH EVERY DAYDisp: 30 tabletRfl: 0 Prescriptions as of 09/19/2019 Sig: BUPROPION XL 150 MG TAB TAKE 1 TABLET BY MOUTH EVERY * HYDROCHLOROTHIAZIDE 25 MG TAB* TAKE 1 TABLET BY MOUTH EVERY * OMEPRAZOLE 20 MG CAPSULE,MARIAM* Take 1 capsule by mouth once * PANTOPRAZOLE 40 MG TABLET,DEL* Take 1 tablet by mouth once d* Problem List As Of Date 09/19/2019 Noted Resolved Essential hypertension [I10] 03/15/2019 Gastric polyps [K31.7] 03/15/2019 Anxiety [F41.9] 03/15/2019 Dupuytren's contracture of right hand [M72.0] 03/15/2019 History of deep vein thrombosis (DVT) of lower *03/15/2019 Prescriptions ordered this encounter Disp Refills Start End BUPROPION XL 150 MG TAB 30 t* 0 09/23/2019 Cmt: Due for ov Sig: TAKE 1 TABLET BY MOUTH EVERY DAY Medications Discontinued During This Encounter buPROPion XL (WELLBUTRIN XL) 150 mg * 30 t* 2 07/08/2019 09/23/2019 Sig: TAKE 1 TABLET BY MOUTH EVERY DAY Disc: Reason for discontinue is not on file. Encounter Status:Closed by VERONICA VIRGEN MD on 09/23/19 [facility] 08-07-2019 [facility] Telephone CP ([id number] ) RONALD AMEZQUITA ([id number]) 1965 M Date Time Provider Department 08/07/19 VERONICA VIRGEN [id number] During your visit today, we recorded the following information about you: Genaro Barron 08/07/2019 11:14 AM Signed Patient on losartan 100mg, got call from pharmacy that it was recalled, needs substitute Genaro Virgen MD 08/09/2019 12:48 PM Signed The following approved medication requests have been transmitted electronically. Signed Prescriptions Disp Refills irbesartan (AVAPRO) 150 mg tablet 90 tablet 1 Sig: Take 1 tablet by mouth daily at bedtime. Authorizing Provider: VERONICA VIRGEN MD Nicole Stempuzis 08/09/2019 1:33 PM Signed Called patient, left message to call back Genaro Barron 08/12/2019 3:53 PM Signed Spoke with patients . Pharmacy is out of [facility], but they are not affected by the recall of losartan and are requesting for us to switch his rx back to losartan 100 mg. Script called into the pharmacy Genaro Barron Allergies As of Date: 08/07/2019 (No Known Allergies) Date Reviewed: 03/15/2019 Reviewed by: Genaro Barron - Fully Assessed Reason for Visit: Medication Problem [509] Prescriptions as of 08/07/2019 Sig: X BUPROPION XL 150 MG TAB TAKE 1 TABLET BY MOUTH EVERY * X HYDROCHLOROTHIAZIDE 25 MG TAB* TAKE 1 TABLET BY MOUTH EVERY * OMEPRAZOLE 20 MG CAPSULE,MARIAM* Take 1 capsule by mouth once * PANTOPRAZOLE 40 MG TABLET,DEL* Take 1 tablet by mouth once d* Problem List As Of Date 08/07/2019 Noted Resolved Essential hypertension [I10] 03/15/2019 Gastric polyps [K31.7] 03/15/2019 Anxiety [F41.9] 03/15/2019 Dupuytren's contracture of right hand [M72.0] 03/15/2019 History of deep vein thrombosis (DVT) of lower *03/15/2019 Prescriptions ordered this encounter Disp Refills Start End IRBESARTAN 150 MG TABLET 90 t* 1 08/09/2019 08/12/2019 Route: ORAL Sig: Take 1 tablet by mouth daily at bedtime. Medications Discontinued During This Encounter losartan (COZAAR) 100 mg tablet 30 t* 5 07/08/2019 08/09/2019 Sig: TAKE 1 TABLET BY MOUTH EVERY DAY. TO BE TAKEN WITH HYDROCHLOROTHIAZIDE 25 MG Disc: Not on Formulary irbesartan (AVAPRO) 150 mg tablet 90 t* 1 08/09/2019 08/12/2019 Route: ORAL Sig: Take 1 tablet by mouth daily at bedtime. Disc: Reason for discontinue is not on file. Encounter Status:Closed by GENARO BARRON on 01/18/20 [facility] OBSOLETEon 07-04-2019 OBSOLETE Refill (MPC92) RONALD AMEZQUITA ([id number]) 1965 M Date Time Provider Department 07/04/19 VERONICA VIRGEN [id number] During your visit today, we recorded the following information about you: Allergies As of Date: 07/04/2019 (No Known Allergies) Date Reviewed: 03/15/2019 Reviewed by: Genaro Barron - Fully Assessed Reason for Visit: Refill Request [94] Order(s):hydroCHLOROthi azide (HYDRODIURIL, ESIDRIX) 25 mg tabletTAKE 1 TABLET BY MOUTH EVERY DAYDisp: 30 tabletRfl: 5 losartan (COZAAR) 100 mg tabletTAKE 1 TABLET BY MOUTH EVERY DAY. TO BE TAKEN WITH HYDROCHLOROTHIAZIDE 25 MGDisp: 30 tabletRfl: 5 Prescriptions as of 07/04/2019 Sig: HYDROCHLOROTHIAZIDE 25 MG TAB* TAKE 1 TABLET BY MOUTH EVERY * LOSARTAN 100 MG TABLET TAKE 1 TABLET BY MOUTH EVERY * OMEPRAZOLE 20 MG CAPSULE,MARIAM* Take 1 capsule by mouth once * X BUPROPION XL 150 MG TAB Take 1 tablet by mouth once d* PANTOPRAZOLE 40 MG TABLET,DEL* Take 1 tablet by mouth once d* Problem List As Of Date 07/04/2019 Noted Resolved Essential hypertension [I10] INVALID FOR* Gastric polyps [K31.7] INVALID FOR* Anxiety [F41.9] INVALID FOR* Dupuytren's contracture of right hand [M72.0] INVALID FOR* History of deep vein thrombosis (DVT) of lower *INVALID FOR* Prescriptions ordered this encounter Disp Refills Start End HYDROCHLOROTHIAZIDE 25 MG TABLET 30 t* 5 07/08/2019 Sig: TAKE 1 TABLET BY MOUTH EVERY DAY LOSARTAN 100 MG TABLET 30 t* 5 07/08/2019 Sig: TAKE 1 TABLET BY MOUTH EVERY DAY. TO BE TAKEN WITH HYDROCHLOROTHIAZIDE 25 MG Medications Discontinued During This Encounter losartan-hydrochlorothi azide (HYZAAR* 30 t* 2 03/15/2019 07/08/2019 Route: ORAL Sig: Take 1 tablet by mouth once daily. Disc: Availability hydroCHLOROthiazide (HYDRODIURIL, ES* 30 t* 1 05/14/2019 07/08/2019 Cmt: To be taken with losartan 100 mg Route: ORAL Sig: Take 1 tablet by mouth once daily. Disc: Reason for discontinue is not on file. losartan (COZAAR) 100 mg tablet 30 t* 1 05/14/2019 07/08/2019 Cmt: To be taken with hctz 25mg Route: ORAL Sig: Take 1 tablet by mouth once daily. Disc: Reason for discontinue is not on file. Encounter Status:Closed by VERONICA VIRGEN MD on 07/08/19 [facility] OBSOLETEon 07-03-2019 OBSOLETE Refill (MPC92) RONALD AMEZQUITA ([id number]) 1965 [place] Date Time Provider Department 07/03/19 VERONICA VIRGEN [id number] During your visit today, we recorded the following information about you: Allergies As of Date: 07/03/2019 (No Known Allergies) Date Reviewed: 03/15/2019 Reviewed by: Genaro Barron - Fully Assessed Reason for Visit: Refill Request [94] Visit Diagnosis:Anxiety [F41.9] Order(s):buPROPion XL (WELLBUTRIN XL) 150 mg 24 hr tabletTAKE 1 TABLET BY MOUTH EVERY DAYDisp: 30 tabletRfl: 2 Prescriptions as of 07/03/2019 Sig: BUPROPION XL 150 MG TAB TAKE 1 TABLET BY MOUTH EVERY * OMEPRAZOLE 20 MG CAPSULE,MARIAM* Take 1 capsule by mouth once * LOSARTAN 100 MG TABLET Take 1 tablet by mouth once d* HYDROCHLOROTHIAZIDE 25 MG TAB* Take 1 tablet by mouth once d* PANTOPRAZOLE 40 MG TABLET,DEL* Take 1 tablet by mouth once d* LOSARTAN 100 MG-HYDROCHLOROTH* Take 1 tablet by mouth once d* Problem List As Of Date 07/03/2019 Noted Resolved Essential hypertension [I10] INVALID FOR* Gastric polyps [K31.7] INVALID FOR* Anxiety [F41.9] INVALID FOR* Dupuytren's contracture of right hand [M72.0] INVALID FOR* History of deep vein thrombosis (DVT) of lower *INVALID FOR* Prescriptions ordered this encounter Disp Refills Start End BUPROPION XL 150 MG TAB 30 t* 2 07/08/2019 Sig: TAKE 1 TABLET BY MOUTH EVERY DAY Medications Discontinued During This Encounter buPROPion XL (WELLBUTRIN XL) 150 mg * 30 t* 1 05/14/2019 07/08/2019 Route: ORAL Sig: Take 1 tablet by mouth once daily. Disc: Reason for discontinue is not on file. Encounter Status:Closed by VERONICA VIRGEN MD on 07/08/19 [facility] OBSOLETEon 06-18-2019 OBSOLETE Refill (MPC92) RONALD AMEZQUITA ([id number]) 1965 [place] Date Time Provider Department 06/18/19 VERONICA VIRGEN [id number] During your visit today, we recorded the following information about you: Leslie Alvarez Ma 06/18/2019 5:09 PM Signed Insurance will not cover the protonix - will cover there prilosec Allergies As of Date: 06/18/2019 (No Known Allergies) Date Reviewed: 03/15/2019 Reviewed by: Genaro Barron - Fully Assessed Reason for Visit: Refill Request [94] Order(s):omeprazole (PRILOSEC) 20 mg capsuleTake 1 capsule by mouth once daily.Disp: 30 capsuleRfl: 3 Prescriptions as of 06/18/2019 Sig: OMEPRAZOLE 20 MG CAPSULE,MARIAM* Take 1 capsule by mouth once * LOSARTAN 100 MG TABLET Take 1 tablet by mouth once d* HYDROCHLOROTHIAZIDE 25 MG TAB* Take 1 tablet by mouth once d* BUPROPION XL 150 MG TAB Take 1 tablet by mouth once d* PANTOPRAZOLE 40 MG TABLET,DEL* Take 1 tablet by mouth once d* LOSARTAN 100 MG-HYDROCHLOROTH* Take 1 tablet by mouth once d* Problem List As Of Date 06/18/2019 Noted Resolved Essential hypertension [I10] INVALID FOR* Gastric polyps [K31.7] INVALID FOR* Anxiety [F41.9] INVALID FOR* Dupuytren's contracture of right hand [M72.0] INVALID FOR* History of deep vein thrombosis (DVT) of lower *INVALID FOR* Prescriptions ordered this encounter Disp Refills Start End OMEPRAZOLE 20 MG CAPSULE,DELAYED REL* 30 c* 3 06/18/2019 Route: ORAL Sig: Take 1 capsule by mouth once daily. Encounter Status:Closed by VERONICA VIRGEN MD on 06/18/19 [facility] OBSOLETEon 05-14-2019 OBSOLETE Refill (MPC92) RONALD AMEZQUITA ([id number]) 1965 [place] Date Time Provider Department 05/14/19 VERONICA VIRGEN [id number] During your visit today, we recorded the following information about you: Allergies As of Date: 05/14/2019 (No Known Allergies) Date Reviewed: 03/15/2019 Reviewed by: Genaro Barron - Fully Assessed Reason for Visit: Refill Request [94] Visit Diagnosis:Anxiety [F41.9] Order(s):buPROPion XL (WELLBUTRIN XL) 150 mg 24 hr tabletTake 1 tablet by mouth once daily.Disp: 30 tabletRfl: 1 Prescriptions as of 05/14/2019 Sig: LOSARTAN 100 MG TABLET Take 1 tablet by mouth once d* HYDROCHLOROTHIAZIDE 25 MG TAB* Take 1 tablet by mouth once d* BUPROPION XL 150 MG TAB Take 1 tablet by mouth once d* PANTOPRAZOLE 40 MG TABLET,DEL* Take 1 tablet by mouth once d* LOSARTAN 100 MG-HYDROCHLOROTH* Take 1 tablet by mouth once d* Problem List As Of Date 05/14/2019 Noted Resolved Essential hypertension [I10] INVALID FOR* Gastric polyps [K31.7] INVALID FOR* Anxiety [F41.9] INVALID FOR* Dupuytren's contracture of right hand [M72.0] INVALID FOR* History of deep vein thrombosis (DVT) of lower *INVALID FOR* Prescriptions ordered this encounter Disp Refills Start End BUPROPION XL 150 MG TAB 30 t* 1 05/14/2019 Route: ORAL Sig: Take 1 tablet by mouth once daily. Medications Discontinued During This Encounter buPROPion XL (WELLBUTRIN XL) 150 mg * 30 t* 1 03/15/2019 05/14/2019 Route: ORAL Sig: Take 1 tablet by mouth once daily. Disc: Reason for discontinue is not on file. Encounter Status:Closed by VERONICA VIRGEN MD on 05/14/19 [facility] OBSOLETE Refill (MPC92) RONALD AMEZQUITA ([id number]) 1965 M Date Time Provider Department 05/14/19 VERONICA VIRGEN [id number] During your visit today, we recorded the following information about you: Leslie Alvarez Ma 05/14/2019 10:01 AM Signed Left message losartan /hctz - on back order will spilt pills will take 2 pills instead of one Leslie Alvarez Ma Allergies As of Date: 05/14/2019 (No Known Allergies) Date Reviewed: 03/15/2019 Reviewed by: Genaro Barron - Fully Assessed Reason for Visit: Refill Request [94] Cmt: losartan hctz not availabe - split pills Reason For Visit History Recorded Order(s):losartan (COZAAR) 100 mg tabletTake 1 tablet by mouth once daily.Disp: 30 tabletRfl: 1 hydroCHLOROthiazide (HYDRODIURIL, ESIDRIX) 25 mg tabletTake 1 tablet by mouth once daily.Disp: 30 tabletRfl: 1 Prescriptions as of 05/14/2019 Sig: LOSARTAN 100 MG TABLET Take 1 tablet by mouth once d* HYDROCHLOROTHIAZIDE 25 MG TAB* Take 1 tablet by mouth once d* BUPROPION XL 150 MG TAB Take 1 tablet by mouth once d* PANTOPRAZOLE 40 MG TABLET,DEL* Take 1 tablet by mouth once d* LOSARTAN 100 MG-HYDROCHLOROTH* Take 1 tablet by mouth once d* Problem List As Of Date 05/14/2019 Noted Resolved Essential hypertension [I10] INVALID FOR* Gastric polyps [K31.7] INVALID FOR* Anxiety [F41.9] INVALID FOR* Dupuytren's contracture of right hand [M72.0] INVALID FOR* History of deep vein thrombosis (DVT) of lower *INVALID FOR* Prescriptions ordered this encounter Disp Refills Start End LOSARTAN 100 MG TABLET 30 t* 1 05/14/2019 Cmt: To be taken with hctz 25mg Route: ORAL Sig: Take 1 tablet by mouth once daily. HYDROCHLOROTHIAZIDE 25 MG TABLET 30 t* 1 05/14/2019 Cmt: To be taken with losartan 100 mg Route: ORAL Sig: Take 1 tablet by mouth once daily. Encounter Status:Closed by VERONICA VIRGEN MD on 05/14/19 [facility] Encounters Encounter Date Encounter Type Care Provider Facility Start: 09-06-2024 End: 09-06-2024 [place] Kwaku [place] 04-14-2024 End: 04-14-2024 ambulatory [facility]i Munoz RN [facility] Clinical [facility] Start: 04-14-2024 End: 04-14-2024 Patient encounter procedure Jacki Munoz RN [facility] Clinical Communication Plan of Treatment Date Care Activity Detail Author Start: 2024 RSV Immunization age d 60 or older (1 - 1-dose 60+ series) RSV Immunization aged 60 or older (1 - 1-dose 60+ series) [facility] Start: 06-09-2024 Influenza vaccination Influenza Vacc ine (#1) [facility] Start: 06-09-2023 COVID-19 Vaccine ( season) COVID-19 Vaccine () [facility] Start: 2014 Zoster Vaccines (1 of 2) Zoster Vacc jared (1 of 2) [facility] Start: 12-26-1983 DTaP/Tdap/Td Vaccine s (1 - Tdap) DTaP/Tdap/Td Vaccines (1 - Tdap) [facility] Start: 12-26-1983 Hepatitis B Vaccines (1 of 3 - 19+ 3-dose series) Hepatitis B Vaccines (1 of 3 - 19+ 3-dose series) [facility] Start: 1982 Hepatitis C screening Hepatitis C Sc reening [facility] Start: 1976 Depression Screening Depression Scre ening [facility] Start: 1965 MMR Vaccines (1 of 1 - Standard series) MMR Vaccines (1 of 1 - Standard series) [facility] Start: 1964 HIV screening HIV Screening [facility] Start: 1964 Lipid panel Lipid Panel [facility] Start: 1964 Screening for malign ant neoplasm of colon [facility] Payers Date Payer Category Payer Self-pay 2024 Unknown [id number] Unknown [id number] Social History Date Type Detail Facility Tobacco smoking stat [facility] Tobacco smoking consumption unknown [facility] Start: 1965 Sex assigned at Not on file [facility] Gender identity Not on file [facility] Telephone encounter Note 04-14-2024 Telephone Encounter - Jacki Munoz RN - 04/14/2024 9:21 AM EDT Note Date & Type Note Facility 04-14-2024 Telephone encounter Note Form atting of this note might be different from the original. S: Patient spoke with [facility] nurse via Nurse Advice Line regarding abscess tooth B: Onset of symptoms/concern several weeks A: States patient has swelling around molar and having pain. States they know tooth is abscessed and are asking for antibiotic to treat. R: Patient understands care advice that antibiotic cannot be ordered by nurse. Advised patient should be evaluated by a dentist. states they wanted to treat with antibiotic before seeing dentist. Advised patient could go to [facility] for evaluation and treatment. No further needs at this time. Patient instructed to call back with new or worsening symptoms. Reason for Disposition Tooth is painful or swelling around a tooth [1] Face is swollen AND [2] no fever Protocols used: Mouth [id number], [id number] [facility] Health Note 04-14-2024 Telephone Encounter - Jacki Munoz RN - 04/14/2024 9:21 AM EDT Note Date & Type Note Facility 04-14-2024 Miscellaneous Notes Formattin g of this note might be different from the original. S: Patient spoke with [facility] nurse via Nurse Advice Line regarding abscess tooth B: Onset of symptoms/concern several weeks A: States patient has swelling around molar and having pain. States they know tooth is abscessed and are asking for antibiotic to treat. R: Patient understands care advice that antibiotic cannot be ordered by nurse. Advised patient should be evaluated by a dentist. states they wanted to treat with antibiotic before seeing dentist. Advised patient could go to [facility] for evaluation and treatment. No further needs at this time. Patient instructed to call back with new or worsening symptoms. Reason for Disposition Tooth is painful or swelling around a tooth [1] Face is swollen AND [2] no fever Protocols used: Mouth [id number], [id number] documented in this encounter [facility] Health Summary Purpose Family History No Family History Records FoundNo Family History Records FoundNo Family History Records FoundNo Family History Records FoundNo Family History Records FoundNo Family History Records FoundNo Family History Records Found Advance Directives No Advanced Directives Records FoundNo Advanced Directives Records FoundNo Advanced Directives Records FoundNo Advanced Directives Records FoundNo Advanced Directives Records FoundNo Advanced Directives Records FoundNo Advanced Directives Records Found Additional Source Comments (unrecognized sect ion and content) No Status Records FoundNo Status Records FoundNo Status Records FoundNo Status Records FoundNo Status Records FoundNo Status Records FoundNo Status Records Found INFORMATION SOURCE (unrecogn ized section and content) DATE CREATED AUTHOR 03/17/2020 [facility] DATE CREATED AUTHOR AUTHOR'S ORGANIZ ATION 09/08/2020 [facility] DATE CREATED AUTHOR AUTHOR'S ORGANIZ ATION 03/24/2022 [facility] DATE CREATED AUTHOR AUTHOR'S ORGANIZ ATION 11/04/2022 [facility] DATE CREATED AUTHOR AUTHOR'S ORGANIZ ATION 12/18/2022 [facility] DATE CREATED AUTHOR AUTHOR'S ORGANIZ ATION 04/14/2024 [facility] DATE CREATED AUTHOR AUTHOR'S ORGANIZ ATION 10/08/2024 [facility] Reason for Visit (unrecogniz ed section and content) Reason Onset Date Comments Dental Pain 04/14/2024 Care Teams (unrecognized sec tion and content) [employer] Relationship Specialty Start Date End Date Rupesh Royal [address] [place] [address] PCP - General Family Medicine 04/14/24 FOR RECORDS PERTAINING TO PATIENTS WHO ARE OR HAVE BEEN ENROLLED IN A CHEMICAL DEPENDENCY/SUBSTANCEABUSE PROGRAM, SOME INFORMATION MAY BE OMITTED. This clinical summary was aggregated from multiple sources. Caution should be exercised in using it in the provision of clinical care. This summary normalizes information from multiple sources, and as a consequence, information in this document may materially change the coding, format and clinical context of patient data. In addition, data may be omitted in some cases. CLINICAL DECISIONS SHOULD BE BASED ON THE PRIMARY CLINICAL RECORDS. [employer] provides no warranty or guarantee of the accuracy or completeness of information in this document.
[2025-03-30 21:30] LABS: Troponin T High Sens 2 HR 8 ng/L (<=22)
== END 2025-03-30 22:28 | disposition home or self-care (01) ==
PROVIDERS: Emergency Provider Emergency Medicine; PCP Family Medicine; Visit Provider Emergency Medicine
DX: I63.9 Cerebral infarction, unspecified (principal); Z86.718 Personal history of other venous thrombosis and embolism; I10 Essential (primary) hypertension; R29.702 NIHSS score 2; R41.0 Disorientation, unspecified; Z79.82 Long term (current) use of aspirin; F17.290 Nicotine dependence, other tobacco product, uncomplicated; R29.898 Other symptoms and signs involving the musculoskeletal system
CPT/HCPCS: 70496; 70498; 80048; 82962; 84484; 85025; 85610; 85730; 93005; 99283; Q9967